=== PATIENT | female | born 1975 | race Caucasian/White ===

== ENCOUNTER 2021-06-25 11:42 | Emergency (ER) | payer OTHER, BC, SELFPAY ==
[2021-06-25 11:42] VITALS: BP 131/74; PULSE 89; RESP 18; TEMP 36.4; O2SAT 95; BMI 36.6
[2021-06-25 12:00] VITALS: BP 131/76; PULSE 90; RESP 18; TEMP 36.6
--- NOTE | 2021-06-25 12:06 | ED.MEDCLEAR ---
HPI - Medical Clearance General Chief complaint: Body Fluid Exposure Stated complaint: Needle stick Time Seen by Provider: 06/25/21 11:51 Source: patient Mode of arrival: ambulatory Limitations: no limitations History of Present Illness HPI Narrative: 46 y/o female presents to the ER for evaluation after a needle stick here at work just prior to arrival. Patient reports accidentally poking herself with a lancet used for point of care glucose testing after sticking the patient. She works here on [employer]. She states the was slight bleeding at the site, she squeezed her finger to make it bleed more and then cleaned it will alcohol and soap and water. She reports the patient was not on any anti-retroviral medications but she does not know for sure if he has HCV or HIV. MD complaint: medical clearance requested Onset (ago): minute(s) Reason for Medical Clearance: other trauma Place: work Alleged Intoxication: No Traumatic Symptoms: abrasion Associated Symptoms: denies other symptoms Treatments Prior to Arrival: none Related Information Allergies Allergy/AdvReac Type Severity Reaction Status Date / Time Unable to Assess Allergy Unverified 06/25/21 12:19 Review of Systems Review of Systems: Constitutional: No Fever, No Chills Cardiovascular: No Chest Pain, No SOB Gastrointestinal: No Nausea, No Vomiting Musculoskeletal: No joint pain, No Myalgias Skin: +Skin Lesions, No rash Neuro: No Weakness, No Numbness Psych: + Anxiety/Panic, No Depression Heme/Lymph: No Bruising, No Lymphadenopathy PMFSH Social History Social History Advance Directives: No Advance Directives Information Provided: No Physical Exam Vital Signs: Vital Signs: Last Vital Signs Temp 97.8 F 06/25/21 12:00 Pulse 90 06/25/21 12:00 Resp 18 06/25/21 12:00 BP 131/76 06/25/21 12:00 Pulse Ox 95 06/25/21 11:42 BMI result Body Mass Index 36.6 Appearance: Alert. Oriented X3. No acute distress. Anxious CVS: Normal heart rate and rhythm. Pulses normal. Respiratory: No respiratory distress. Skin: Skin warm and dry. Normal skin color. Normal skin turgor. No rashes. Extremities: left 5th digit with a punctate erythematous lesion that could be consistent with a superficial needle stick. no tenderness, no surrounding erythema. normal ROM of the finger. NV intact distally. Neuro: Oriented X 3. No motor deficit. No sensory deficit. 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 HIV and HCV status unknown. Unknown if IVDA. Doctor caring for the patient has been made aware with plan to test the patient for hepatitis and HIV. We discussed the risks and benefits of post-exposure prophylaxis. Given this is a very low risk exposure decision was made to hold off on prophylaxis at this time and follow up with the patients labs. If she changes her mind she was encouraged to return to the ER [facility] to start meds, preferably within 72 hours of event. Patient expressed understanding. Stable for d/c with [facility] follow up. MDM - Medical Clearance Lab Data Result diagrams: 06/25/21 12:43 06/25/21 12:43 Discharge Plan Discharge Clinical Impression: Exposure to blood or body fluid Patient Disposition: Home, Self-Care Instructions: Body Substance Exposure (ED) Additional Instructions: Your labs were drawn for hepatitis panel and HIV. If either are positive, we will call you. Your exposure today was very low risk Decision was made to hold off on propphylaxis for now - encourage the source to get tested for HIV and hepatitis. If you change your mind, come back to the ER to start prophylaxis. Follow up with [facility]. Referrals: [facility] [Provider Group] - 2 days Interventions: ED Discharge Assessment Last Done: 06/25/21 12:50 Discharge Date/Time: 06/25/21 12:52
[2021-06-25 12:47] LABS: MANUAL DIFF FLAG NO
[2021-06-25 13:04] LABS: Basophils Absolute Auto 0.1 X10*3/uL (0.0-0.2); Basophils Percent Auto 0.6 % (0-2); Eosinophils Absolute Auto 0.2 X10*3/uL (0.0-0.4); Eosinophils Percent Auto 2.6 % (0-4); Hematocrit 40.1 % (37.0-47.0); Imm Gran Abs Auto 0.03 X10*3/uL (0.00-0.03); Imm Gran Pct Auto 0.4 % (0.0-0.4); Lymphocytes Absolute Auto 2.1 X10*3/uL (1.2-4.9); Mean Corpuscular HGB Conc 34.9 g/dl (31.0-35.0); Mean Corpuscular Hemoglobin 31.1 pg (27.0-33.0); Mean Corpuscular Volume 89.1 fL (80.0-98.0); Monocytes Absolute Auto 0.4 X10*3/uL (0.1-1.2); Monocytes Percent Auto 5.3 % (2-11); Neutrophils Absolute Auto 5.3 x10*3/uL (2.0-8.3); Neutrophils Percent Auto 65.1 % (45-73); Platelet Count 240 X10*3/uL (160-400); Red Cell Distribution Width 12.3 % (11.0-16.0); White Blood Count 8.2 X10*3/uL (4.8-10.8)
[2021-06-25 13:07] LABS: Alanine Aminotransferase 16 U/L (0-31); Albumin Level 4.1 g/dL (3.5-5.0); Alkaline Phosphatase 44 U/L (39-117); Anion Gap 12 (12-20); Aspartate Amino Transferase 17 U/L (5-31); Bilirubin Direct 0.2 mg/dL (0.0-0.5); Bilirubin Total 0.7 mg/dL (0.0-1.0); Blood Urea Nitrogen 10 mg/dL (9-16); Calcium 9.4 mg/dL (8.4-10.2); Carbon Dioxide 28 mmol/L (22-29); Chloride 106 mmol/L (96-108); Estimated Glomerular Filt Rate 57; Glucose Random 100 mg/dL (60-115); Potassium 4.6 mmol/L (3.3-5.1); Sodium 141 mmol/L (135-145); Total Protein 6.6 g/dL (6.5-8.0)
[2021-06-27 04:09] LABS: HBS Num1 2.41 mIU/mL (0-7.99); HBc Num1 0.05 S/CO (0.00-0.79); Hepatitis B Core Antibody Nonreactive (Nonreactive); ~HepC Num1 0.06 S/CO (0.00-0.79); ~Hepatitis B Surface Antibody NONREACTIVE (Nonreactive); ~Hepatitis C Antibody Nonreactive (Nonreactive)
[2021-06-27 04:12] LABS: HBsAGNum1 0.22 S/CO (0.00-0.99); HIV AB/AG Nonreactive (Nonreactive); HIV Num 1 0.05 S/CO (0.00-0.99); Hepatitis B Surface Antigen Negative (Negative)
[2021-06-29 04:04] LABS: Hepatitis A Antibody IgM 0.21 Index (0-0.79); ~Hepatitis A Antibody IgM Nonreactive (Nonreactive)
== END 2021-06-25 12:52 | disposition home or self-care (01) ==
PROVIDERS: Physician Assistant; Emergency Provider Emergency Medicine Emergency Medical Services; PCP Family Medicine
DX: Z04.2 Encounter for examination and observation following work accident (principal); Z77.21 Contact with and (suspected) exposure to potentially hazardous body fluids
CPT/HCPCS: 36415; 80048; 80076; 85025; 86704; 86706; 86709; 86803; 87340; 87389; 99283; 99284

== ENCOUNTER → 2021-09-16 09:22 | Outpatient (BNVA) | payer OTHER, SELFPAY | PROVIDERS: PCP Family Medicine | DX: Z13.89 Encounter for screening for other disorder (principal) | CPT/HCPCS: 36415; 84450; 84460; 86803; 87389; 99211 ==

== ENCOUNTER → 2022-01-04 15:11 | Outpatient (BNVA) | payer OTHER, SELFPAY | PROVIDERS: PCP Family Medicine | DX: Z13.89 Encounter for screening for other disorder (principal) | CPT/HCPCS: 36415; 84450; 84460; 86803; 87389; 99211 ==

== ENCOUNTER 2022-07-20 09:00 | Outpatient (RCR) | payer OTHER, SELFPAY | END 2022-08-03 08:30 | disposition home or self-care (01) | LOC: HO.PT 09:00 | PROVIDERS: PCP Family Medicine; Visit Provider Family Medicine | DX: M54.12 Radiculopathy, cervical region (principal) | CPT/HCPCS: 97112; 97161 ==

== ENCOUNTER 2022-12-18 13:01 | Emergency (ER) | payer OTHER, SELFPAY ==
--- OUTSIDE RECORDS SUMMARY | 2022-12-18 15:40 | XMS_ITS | Continuity of Care Document ---
Author Name Unknown Organization [facility] Address [address] [place] [address]- Care Team Providers Care Ship'S Electronic Warfare Officer Name Role Phone Annabelle CANTU, Clementine Guillory Primary Care Physician ( [phone] [facility]counter [facility] Date[facility]): 05/10[facility]21 - 06/09/21 [facility] [address] [place] [address]- Allergies, Adverse Reactions, Alerts Substance Reaction Severity Status codeine gi vomitting hives Severe Active sertraline 1, 2 Active 1focal itchy rash on one vaughn with pitting edema by her report 3 wks in to treatment course, just prior was rash only on one wrist. 2rash, pitting edema Immunizations Given and Recorded Vaccine Date Status Refusal Reason SARS-CoV-2 (COVID-19) mRNA-1273 vaccine 04/19/21 R ecorded SARS-CoV-2 (COVID-19) mRNA-1273 vaccine 06/25/20 R ecorded SARS-CoV-2 (COVID-19) mRNA-1273 vaccine 05/28/20 R ecorded tetanus/diphtheria/pertussis, acel(Tdap) 1 10/25/15 Given influenza virus vaccine, inactivated 2 03/06/12 Gi landy influenza virus vaccine, inactivated 04/03/11 Jl rded influenza virus vaccine, inactivated 03/08/10 Give n Measles/Mumps/Rubella Virus Vaccine 11/17/04 Given Measles/Mumps/Rubella Virus Vaccine 09/26/89 Given Measles/Mumps/Rubella Virus Vaccine 77 Given tetanus-diphtheria toxoids (Td) 3 11/17/04 Given tetanus-diphtheria toxoids (Td) 4 5/12/88 Given Hepatitis B Vaccine (old term) 5 04/06/94 Given Hepatitis B Vaccine (old term) 6 10/05/93 Given Hepatitis B Vaccine (old term) 7 08/31/93 Given Poliovirus Vaccine, Inactivated 8 02/21/82 Given Poliovirus Vaccine, Inactivated 9 10/15/78 Given Poliovirus Vaccine, Inactivated 10 77 Given Poliovirus Vaccine, Inactivated 11 77 Given Poliovirus Vaccine, Inactivated 12 77 Given diphtheria/tetanus/pertussis, acel(DTaP) 02/21/82 Given diphtheria/tetanus/pertussis, acel(DTaP) 10/15/78 Given diphtheria/tetanus/pertussis, acel(DTaP) 77 Given diphtheria/tetanus/pertussis, acel(DTaP) 77 Given diphtheria/tetanus/pertussis, acel(DTaP) 77 Given 1Result Comment: [10/25/2015] waiver signed 2Admin Note: VIM dated 10/30/11 GIVEN TODAY 3Admin Note: [employer] vim 03/17/08 4Admin Note: [employer] vim 03/17/08 5Admin Note: pediatrix, vis given 6Admin Note: pediatrix, vis given 7Admin Note: pediatrix, vis given 8Admin Note: pediatrix, vis given 9Admin Note: pediatrix, vis given 10Admin Note: pediatrix, vis given 11Admin Note: pediatrix, vis given 12Admin Note: pediatrix, vis given Medications buPROPion 300 mg/24 hours (XL) oral tablet, extended release 1 tablet = 300 mg, By Mouth, Every 24 hours, # 90 tablet, 1 Refills, Maintenance, 04/14/21 16:47:00EST, [facility]/pharmacy #[id number], Partial fill upon patient request if the prescription is for a schedule IIopioid drug., 166, cm, 03/30/21 15:10:00 EST, Height Start Date: 04/14/21 Stop Date: 10/11/21 Status: Ordered doxepin 5% topical cream 1 application, Topically, 4 times a day, PRN for itching, # 30 Gm, 0 Refills, Maintenance, 03/07/2115:04:00 EST, Cream, Partial fill upon patient request if the prescription is for a schedule II opioid drug. Start Date: 03/07/21 Status: Ordered Vitamin D3 By Mouth, 0 Refills, Maintenance, 11/29/16 15:00:22 Start Date: 11/29/16 Status: Ordered Xanax 0.25 mg oral tablet 0.25 mg, 1, tablet, By Mouth, 3 times a day, PRN, mass pat ok, ok for less, # 12 tablet, Refills 0,Tot. Refills 0, Maintenance, air travel, 05/23/21 17:47:00 EST, Route to Pharmacy Electronically, [facility]/pharmacy #[id number], 166, cm, 05/23/21 8:36:00 EST, He... 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
--- OUTSIDE RECORDS SUMMARY | 2022-12-18 15:40 | XMS_ITS | Continuity of Care Document ---
Author Name Unknown Organization [facility] Address [address] [place] [address]- Care Team Providers Care Store Gift Wrap Associate Name Role Phone Annabelle CANTU, Clementine Guillory Primary Care Physician [facility] Date[facility]s): 07/[facility]/20 - 08/29/20 [facility] [address] [place] [address]- Allergies, Adverse Reactions, Alerts Substance Reaction Severity Status codeine gi vomitting hives Severe Active Immunizations Given and Recorded Vaccine Date Status Refusal Reason tetanus/diphtheria/pertussis, acel(Tdap) 1 10/25/15 Given influenza virus vaccine, inactivated 2 03/06/12 Gi landy influenza virus vaccine, inactivated 03/08/10 Give n Measles/Mumps/Rubella Virus Vaccine 11/17/04 Given Measles/Mumps/Rubella Virus Vaccine 09/26/89 Given Measles/Mumps/Rubella Virus Vaccine 77 Given tetanus-diphtheria toxoids (Td) 3 11/17/04 Given tetanus-diphtheria toxoids (Td) 4 09/09/87 Given Hepatitis B Vaccine (old term) 5 04/06/94 Given Hepatitis B Vaccine (old term) 6 10/05/93 Given Hepatitis B Vaccine (old term) 7 08/31/93 Given Poliovirus Vaccine, Inactivated 8 02/21/82 Given Poliovirus Vaccine, Inactivated 9 10/15/78 Given Poliovirus Vaccine, Inactivated 10 77 Given Poliovirus Vaccine, Inactivated 11 77 Given Poliovirus Vaccine, Inactivated 77 Given diphtheria/tetanus/pertussis, acel(DTaP) 02/21/82 Given diphtheria/tetanus/pertussis, [...] given 12Admin Note: pediatrix, vis given Medications Vitamin D3 By Mouth, 0 Refills, Maintenance, 11/29/16 15:00:22 Start Date: 11/29/16 Status: Ordered Problem List Condition Effective Dates Status Health Status Inform ant 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
--- OUTSIDE RECORDS SUMMARY | 2022-12-18 15:40 | XMS_ITS | Continuity of Care Document ---
Author Name Unknown Organization [facility] Address [address] [place] [address]- Care Team Providers Care Rotor Balancer Name Role Phone Annabelle CANTU, Clementine Guillory Primary Care Physician [facility] [place]s): 04/08/20 - 04/15/20 [facility] [address] [place] [address]- Encounter Diagnosis Sense of smell altered(Discharge Diagnosis) - 04/11/20 Falls(Discharge Diagnosis) - 04/11/20 Attending Physician: Annabelle CANTU, Clementine Guillory Allergies, Adverse Reactions, Alerts Substance Reaction Severity [...] Lactose intolerance(Confirmed) Active Vitamin D deficiency(Confirmed) Active Diagnosis Diagnosis Type Effective Dates Health Status Cl inical Service Informant Sense of smell altered Discharge Diagnosis 04/11/20 Falls Discharge Diagnosis 04/11/20 Vital Signs Most recent to oldest [Reference Range]: 1 Height 166.6 cm (04/08/20 1:08 PM) Social History Social History Type Response Smoking Status Never (less than 100 in lifetime) entered on: 11/19/19 Sex
--- OUTSIDE RECORDS SUMMARY | 2022-12-18 15:40 | XMS_ITS | Continuity of Care Document ---
Author Name Unknown Organization [facility] Address [address] [place] [address]- Care Team Providers Care Cad Technician Name Role Phone Annabelle CANTU, Clementine Guillory Primary Care Physician [facility] Date[facility]s): 08/19/21 - 09/18/21 [facility] [address] [place] [address]- Allergies, Adverse Reactions, Alerts Substance Reaction Severity [...] 90 tablet, 1 Refills, Maintenance, 04/14/21 16:47:00EST, [facility]/pharmacy #[id number], Partial fill upon patient request if [...] 05/23/21 17:47:00 EST, Route to Pharmacy Electronically, [facility]/pharmacy #[id number], 166, cm, 05/23/21 8:36:00 EST, He... [...]
--- OUTSIDE RECORDS SUMMARY | 2022-12-18 15:40 | XMS_ITS | Continuity of Care Document ---
Author Name Unknown Organization [facility] Address [address] [place] [address]- Care Team Providers Care Clinical Research Analyst Name Role Phone Annabelle CANTU, Clementine Guillory Primary Care Physician [place] [facility] [place] 04/21/21 - 04/28/21 [facility] [address] [place] [address]- Attending Physician: Not on Staff, Attending MD Referring Physician: Annabelle CANTU, Clementine Guillory Allergies, Adverse [...] Status Refusal Reason SARS-CoV-2 (COVID-19) mRNA-1273 vaccine 06/25/20 R ecorded [...] 90 tablet, 1 Refills, Maintenance, 04/14/21 16:47:00EST, [facility]/pharmacy #[id number], Partial fill upon patient request if the prescription is for a schedule IIopioid drug., 166, cm, 03/30/21 15:10:00 EST, Height Start Date: 04/14/21 Stop Date: 10/11/21 Status: Ordered cephalexin monohydrate 500 mg oral capsule 1 capsule = 500 mg, By Mouth, 4 times a day, for 7 days, # 28 capsule, 0 Refills, Acute 05/03/21 9:34:00 EST, 04/26/21 9:34:00 EST, Capsule, [facility]/pharmacy #[id number], Partial fill upon patient request if the prescription is for a schedule II opioid drug., 1... Start Date: 04/26/21 Stop Date: 05/03/21 Status: Ordered clotrimazole 1% topical cream 1 application, Topically, 2 times a day, PRN athlete's foot/ rash, for 30 days, # 45 Gm, 1 Refills,Acute 05/11/21 15:28:00 EST, 03/12/21 15:28:00 EST, Cream, [facility]/pharmacy #[id number], Partial fill upon patient request if the prescription is for a schedule... Start Date: 03/12/21 Stop Date: 05/11/21 Status: Ordered doxepin 5% topical cream 1 [...] Refills 0,Tot. Refills 0, Maintenance, air travel, 12/30/20 21:13:00 EDT, Route to Pharmacy Electronically, [facility]/pharmacy #[id number], 166, cm, 12/10/20 7:42:00 EDT, He... 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 HLD (hyperlipidemia)(Confirmed) Active h/o IBS (irritable bowel syndrome)(Confirmed) Active Lactose intolerance(Confirmed) Active Psoriasis(Confirmed) Active Mild recurrent major depression(Confirmed) Active Vitamin D deficiency(Confirmed) Active Vital Signs Most recent to oldest [Reference Range]: 1 Height 166 cm (04/21/21 9:04 AM) Oxygen Saturation [94-100 %] 97 % (04/21/21 9:04 AM) Pulse Rate [55-90 bpm] 87 bpm (04/21/21 9:04 AM) Blood Pressure [90-138/55-84 mm Hg] 116/ 88mm Hg (04/21/21 9:04 AM) Respiratory Rate [16-30 br/min] 16 br/mi n (04/21/21 9:04 AM) Temperature [96.8-100.4 DegF] 99.4 DegF (04/21/21 9:04 AM) Mode of Delivery (Oxygen) Room air (04/21/21 9:04 AM) Blood pressure sites Arm, right (04/21/21 9:04 AM) Temperature Route Temporal (04/21/21 9:04 AM) Social History Social History Type Response Smoking Status Never (less than 100 in lifetime) entered on: 11/19/19 Sex
--- OUTSIDE RECORDS SUMMARY | 2022-12-18 15:40 | XMS_ITS | Continuity of Care Document ---
Author Name Unknown Organization [facility] Address [address] [place] [address]- Care Team Providers Care Cloth Washer Back Tender Name Role Phone Annabelle CANTU, Clementine Guillory Primary Care Physician [facility] Date(s): 05/02/21 - 06/01/21 [facility] [address] [place] [address]- Attending Physician: Jennifer Quintero Admitting Physician: Jennifer Quintero Referring Physician: AdmtrJennifer Allergies, Adverse Reactions, Alerts Substance Reaction Severity [...] # 90 tablet, 1 Refills, Maintenance, 04/14/21 16:47:00[facility], [facility]/pharmacy #[id number], Partial fill upon patient request if the [...] opioid drug. Start Date: 03/07/21 Status: Ordered mupirocin 2% topical cream 1 application, Topically, 3 times a day, for 10 days, apply a thin film to rash, # 60 Gm, 0 Refills, Acute 06/09/21 13:45:00 EST, 05/30/21 13:45:00 EST, Cream, [facility]/pharmacy #[id number], Partial fill upon patient request if the prescription is for a schedule... Start Date: 05/30/21 Stop Date: 06/09/21 Status: Ordered Vitamin D3 By Mouth, 0 Refills, Maintenance, 11/29/16 15:00:22 Start Date: 11/29/16 Status: Ordered Xanax 0.25 mg oral tablet 0.25 mg, 1, tablet, By Mouth, 3 times a day, PRN, mass pat ok, ok for less, # 12 tablet, Refills 0,Tot. Refills 0, Maintenance, air travel, 05/23/21 17:47:00 EST, Route to Pharmacy Electronically, [facility]/pharmacy #[id number], 166, cm, 05/23/21 8:36:00 EST, He... Start [...]
--- OUTSIDE RECORDS SUMMARY | 2022-12-18 15:40 | XMS_ITS | Continuity of Care Document ---
Author Name Unknown Organization [facility] Address [address] [place] [address]- Care Team Providers Care Business Solutions Director Name Role Phone Annabelle CANTU, Clementine Guillory Primary Care Physician [facility] Date[facility]s): 10/24/21 - 11/23/21 [facility] [address] [place] [address]- Allergies, Adverse Reactions, Alerts Substance Reaction Severity [...] 90 tablet, 1 Refills, Maintenance, 04/14/21 16:47:00EST, [facility]/pharmacy #[id number], Partial fill upon patient request if the prescription is for a schedule IIopioid drug., 166, cm, 03/30/21 15:10:00 EST, Height Start Date: 04/14/21 Stop Date: 10/11/21 Status: Ordered buPROPion 300 mg/24 hours (XL) oral tablet, extended release See Instructions, TAKE 1 TABLET BY MOUTH EVERY 24 HOURS FOR 90 DAYS, # 60 tablet, 2 Refills, [id number], 166, cm, 05/30/21 11:02:00 EST, Height Start Date: 10/03/21 Status: Ordered doxepin 5% topical cream 1 [...] 05/23/21 17:47:00 EST, Route to Pharmacy Electronically, [facility]/pharmacy #[id number], 166, cm, 05/23/21 8:36:00 EST, He... [...]
--- OUTSIDE RECORDS SUMMARY | 2022-12-18 15:40 | XMS_ITS | Continuity of Care Document ---
Author Name Unknown Organization [facility] Address [address] [place] [address]- Care Team Providers Care Senior Research Scientist Name Role Phone Annabelle CANTU, Clementine Guillory Primary Care Physician [facility] Date(s): 08/12/20 - 09/11/20 [facility] [address] [place] [address]- Allergies, Adverse Reactions, Alerts Substance Reaction Severity [...]
--- OUTSIDE RECORDS SUMMARY | 2022-12-18 15:40 | XMS_ITS | Continuity of Care Document ---
Author Name Unknown Organization [facility] Address [address] [place] [address]- Care Team Providers Care Ginner Name Role Phone Annabelle CANTU, Clementine Guillory Primary Care Physician ( [phone] [place] [facility] [place](s): 11/07/19 - 11/14/19 [facility] [address] [place] [address]- [facility] Encounter Diagnosis Encounter for observation for suspected exposure to other biological agents ruled out(Discharge Diagnosis) - 11/07/19 Attending Physician: Gabe Hilario MD Allergies, Adverse Reactions, Alerts Substance Reaction Severity [...] given 12Admin Note: pediatrix, vis given Medications Aerochamber See Instructions, PRN, # 1 each, Maintenance, Cough, for use with albuterol MDI, 04/15/18 13:53:27 EST, Compound Start Date: 04/15/18 Status: Ordered baclofen/flurbiprofen/lidocaine topical 1 applicator, Topically, 3 times a day, 0 Refills, Maintenance, 08/27/17 14:44:35 EDT Start Date: 08/27/17 Status: Ordered diclofenac sodium 75 mg oral delayed release tablet 1 tablet = 75 mg, By Mouth, 2 times a day, # 60 tablet, 2 Refills, Maintenance, 09/30/18 14:31:25 EDT, EC Tablet Start Date: 09/30/18 Status: Ordered doxycycline hyclate 200 mg oral delayed release tablet 1 tablet = 200 mg, By Mouth, Daily, # 1 tablet, 0 Refills, Maintenance, 09/17/18 16:18:42 EDT Start Date: 09/17/18 Stop Date: 09/18/18 Status: Ordered metroNIDAZOLE 0.75% topical gel 1 application, Topically, Daily, with vaginal applicator, # 45 Gm, 0 Refills, Maintenance, 10/09/1916:37:53 EDT, Gel Start Date: 10/09/18 Stop Date: 10/14/18 Status: Ordered raNITIdine 75 mg oral tablet 1 tablet = 75 mg, By Mouth, 2 times a day, # 14 tablet, 0 Refills, Maintenance, 10/16/18 16:23:15 EDT, Tablet Start Date: 10/16/18 Stop Date: 10/23/18 Status: Ordered Vitamin D3 By Mouth, 0 Refills, Maintenance, 11/29/16 15:00:22 Start Date: 11/29/16 Status: Ordered Problem List Condition Effective Dates Status Health Status Inform ant HLD (hyperlipidemia)(Confirmed) Active IBS (irritable bowel syndrome)(Confirmed) Active Lactose intolerance(Confirmed) Active Vitamin D deficiency(Confirmed) Active Diagnosis Diagnosis Type Effective Dates Health Status Clinical Service Informant Encounter for observation for suspected exposure to other biological agents ruled out Discharge Diagnosis 11/07/19 Vital Signs Most recent to oldest [Reference Range]: 1 Height 166.6 cm (11/07/19 1:45 PM) Social History Social History Type Response Smoking Status Never smoker entered on: 12/23/13 Sex
--- OUTSIDE RECORDS SUMMARY | 2022-12-18 15:40 | XMS_ITS | Continuity of Care Document ---
Author Name Unknown Organization [facility] Address [address] [place] [address]- Care Team Providers Care Supervisor Screen Making Name Role Phone Annabelle CANTU, Clementine Guillory Primary Care Physician [facility] Date(s): 10/07/20 - 11/06/20 [facility] [address] [place], [place] [address] Allergies, Adverse Reactions, Alerts Substance Reaction Severity [...]
--- OUTSIDE RECORDS SUMMARY | 2022-12-18 15:40 | XMS_ITS | Continuity of Care Document ---
Author Name Unknown Organization [facility] Address [address] [place] [address]- Care Team Providers Care Contractor Field Hauling Name Role Phone Annabelle CANTU, Clementine Guillory Primary Care Physician ( [phone] [facility]counter [facility] Date(s): 12/30/20 - 01/29/21 [facility] [address] [place], [place] [address] Allergies, Adverse Reactions, Alerts Substance Reaction [...] Inactivated 9 10/15/78 Given Poliovirus Vaccine, Inactivated 77 Given Poliovirus Vaccine, Inactivated 77 Given Poliovirus Vaccine, Inactivated 77 Given [...] 12/30/20 21:13:00 EDT, Route to Pharmacy Electronically, [facility]/pharmacy #[id number], 166, cm, 12/10/20 7:42:00 EDT, He... Start [...]
--- OUTSIDE RECORDS SUMMARY | 2022-12-18 15:40 | XMS_ITS | Continuity of Care Document ---
Author Name Unknown Organization [facility] Address [address] [place] [address]- Care Team Providers Care University President Name Role Phone Annabelle CANTU, Clementine Guillory Primary Care Physician [facility] Date(s): 03/09/20 - 04/08/20 [facility] [address] [place], [place] [address] Allergies, Adverse Reactions, Alerts Substance Reaction Severity [...]
--- OUTSIDE RECORDS SUMMARY | 2022-12-18 15:40 | XMS_ITS | Continuity of Care Document ---
Author Name Unknown Organization [facility] Address [address] [place] [address]- Care Team Providers Care Customer Training Specialist Name Role Phone Annabelle CANTU, Clementine Guillory Primary Care Physician [facility]counter [facility] Date(s): 03/30/21 - 04/29/21 [facility] [address] [place] [address]- Allergies, Adverse Reactions, Alerts Substance Reaction Severity [...] 90 tablet, 1 Refills, Maintenance, 04/14/21 16:47:00EST, [id number], Partial fill upon patient request [...] 05/11/21 15:28:00 EST, 03/12/21 15:28:00 EST, Cream, [facility]/pharmacy #[id number], Partial fill upon patient request if [...] 12/30/20 21:13:00 EDT, Route to Pharmacy Electronically, [facility]/pharmacy #5, 166, cm, 12/10/20 7:42:00 EDT, He... Start [...]
--- OUTSIDE RECORDS SUMMARY | 2022-12-18 15:40 | XMS_ITS | Continuity of Care Document ---
Author Name Unknown Organization [facility] Address [address] [place] [address]- Care Team Providers Care Clinical Team Manager Name Role Phone Annabelle CANTU, Clementine Guillory Primary Care Physician ( [phone] [place] [facility] [place] 11/03/21 - 01/14/22 [facility] [address] [place] [address]- Attending Physician: Annabelle CANTU, Clementine Guillory Allergies, [...] 90 tablet, 1 Refills, Maintenance, 04/14/21 16:47:00EST, [facility]/pharmacy #[id number], Partial fill upon patient request if the prescription is for a schedule IIopioid drug., 166, cm, 03/30/21 15:10:00 EST, Height Start Date: 04/14/21 Stop Date: 10/11/21 Status: Ordered buPROPion 300 mg/24 hours (XL) oral tablet, extended release See Instructions, TAKE 1 TABLET BY MOUTH EVERY 24 HOURS FOR 90 DAYS, # 60 tablet, 2 Refills, [id number], 166, cm, 05/30/21 11:02:00 EST, Height Start [...] 05/23/21 17:47:00 EST, Route to Pharmacy Electronically, [facility]/pharmacy #[id number], 166, cm, 05/23/21 8:36:00 EST, [...] 100 in lifetime) entered on: 11/19/19 Sex Care Team Personnel Name: Annabelle CANTU, Clementine Guillory Address: [address] [place] [address]
--- OUTSIDE RECORDS SUMMARY | 2022-12-18 15:40 | XMS_ITS | Continuity of Care Document ---
Author Name Unknown Organization [facility] Address [address] [place] [address]- Care Team Providers Care Accounts Receivable Collector Name Role Phone Annabelle CANTU, Clementine Guillory Primary Care Physician [facility] Date(s): 12/15/20 - 01/14/21 [facility] [address] [place], [place] [address] Allergies, Adverse Reactions, Alerts Substance Reaction [...] 12/30/20 21:13:00 EDT, Route to Pharmacy Electronically, [facility]/pharmacy #[id number], 166, cm, 12/10/20 7:42:00 EDT, He... Start [...]
--- OUTSIDE RECORDS SUMMARY | 2022-12-18 15:40 | XMS_ITS | Continuity of Care Document ---
Author Name Unknown Organization [facility] Address [address] [place] [address]- Care Team Providers Care Sound Cutter Name Role Phone Annabelle CANTU, Clementine Guillory Primary Care Physician Encounter [facility] Date(s): 05/30/21 - 06/06/21 [facility] [address] [place] [address]- Encounter Diagnosis Rash(Discharge Diagnosis) - 05/30/21 Attending Physician: Annabelle CANTU, Clementine Guillory Allergies, [...] # 90 tablet, 1 Refills, Maintenance, 04/14/21 16:47:00[facility], [facility]/pharmacy #[id number], Partial fill upon patient request [...] 06/09/21 13:45:00 EST, 05/30/21 13:45:00 EST, Cream, [facility]/pharmacy #[id number], Partial fill upon patient request if [...] 05/23/21 17:47:00 EST, Route to Pharmacy Electronically, [facility]/pharmacy #[id number], 166, cm, 05/23/21 8:36:00 EST, He... [...] major depression(Confirmed) Active Vitamin D deficiency(Confirmed) Active Diagnosis Diagnosis Type Effective Dates Health Status Clini nina Service Informant Rash Discharge Diagnosis 05/30/21 Vital Signs Most recent to oldest [Reference Range]: 1 Height 166 cm (05/30/21 11:02 AM) Weight 104.4 kg (05/30/21 11:02 AM) Body Mass Index [18.5-24.99] 37.89 *>HHI* (05/30/21 11:02 AM) Social History Social History Type Response Smoking Status Never (less than 100 in lifetime) entered on: 11/19/19 Sex
--- OUTSIDE RECORDS SUMMARY | 2022-12-18 15:40 | XMS_ITS | Continuity of Care Document ---
Author Name Unknown Organization [facility] Address [address] [place] [address]- Care Team Providers Care Steward/Stewardess Room Name Role Phone Annabelle CANTU, Clementine Guillory Primary Care Physician [facility] Date(s): 02/28/21 - 03/30/21 [facility] [address] [place] [address]- Allergies, Adverse Reactions, Alerts Substance Reaction Severity [...] 12Admin Note: pediatrix, vis given Medications buPROPion 150 mg/24 hours (XL) oral tablet, extended release 1 tablet = 150 mg, By Mouth, Every 24 hours, new start 03/30/21, may increase in 7 days if tolerating to 2 pills (300 mg ) a day. do not crush or chew, # 30 tablet, 0 Refills, Maintenance, 03/30/21 16:49:00 EST, ER Tablet, [facility]/pharmacy #[id number], Partial... Start Date: 03/30/21 Stop Date: 04/29/21 Status: Ordered calcipotriene 0.005% topical cream 1 application, Topically, 2 times a day, PRN psoriasis, for 30 days, # 60 Gm, 0 Refills, Acute 04/02/21 16:27:00 EST, 03/03/21 16:27:00 EDT, Cream, [facility]/pharmacy #[id number], Partial fill upon patient request if the prescription is for a schedule II opioid d... Start Date: 03/03/21 Stop Date: 04/02/21 Status: Ordered clotrimazole 1% topical cream 1 application, Topically, 2 times a day, PRN athlete's foot/ rash, for 30 days, # 45 Gm, 1 Refills,Acute 05/11/21 15:28:00 EST, 03/12/21 15:28:00 EST, Cream, [facility]/pharmacy #[id number], Partial fill upon patient request [...] 12/30/20 21:13:00 EDT, Route to Pharmacy Electronically, [facility]/pharmacy #[id number], 166, cm, 12/10/20 7:42:00 EDT, [...]
--- OUTSIDE RECORDS SUMMARY | 2022-12-18 15:40 | XMS_ITS | Continuity of Care Document ---
Author Name Unknown Organization [facility] Address [address] [place] [address]- Care Team Providers Care Helper/Driver Name Role Phone nAnabelle CANTU, Clementine Guillory Primary Care Physician [facility]counter [facility] Date(s): 10/18/20 - 11/17/20 [facility] [address] [place], [place] [address] Allergies, Adverse Reactions, Alerts Substance [...]
--- OUTSIDE RECORDS SUMMARY | 2022-12-18 15:40 | XMS_ITS | Continuity of Care Document ---
Author Name Unknown Organization [facility] Address [address] [place] [address]- Care Team Providers Care Wine And Spirits Clerk Name Role Phone Annabelle CANTU, Clementine Guillory Primary Care Physician [facility]counter [facility] Date(s): 12/13/20 - 01/12/21 [facility] [address] [place], [place] [address] Allergies, Adverse Reactions, Alerts Substance Reaction [...] 12/30/20 21:13:00 EDT, Route to Pharmacy Electronically, [facility]/pharmacy #[id number], 166, cm, 12/10/20 7:42:00 EDT, He... Start [...]
--- OUTSIDE RECORDS SUMMARY | 2022-12-18 15:40 | XMS_ITS | Continuity of Care Document ---
Author Name Unknown Organization [facility] Address [address] [place] [address]- Care Team Providers Care Ranch Manager Name Role Phone Annabelle CANTU, Clementine Guillory Primary Care Physician Encounter [facility] [place] [place] Date(s): 05/30/21 - 06/29/21 [facility] [address] [place] [address]- Attending Physician: Jennifer Quintero Admitting Physician: Jennifer Quintero Referring Physician: Jennifer Quintero Allergies, Adverse Reactions, Alerts Substance Reaction Severity [...] # 90 tablet, 1 Refills, Maintenance, 04/14/21 16:47:00[facility], [facility]/pharmacy #[id number], Partial fill upon patient request if the [...] 05/23/21 17:47:00 EST, Route to Pharmacy Electronically, [facility]/pharmacy #[id number], 166, cm, 05/23/21 8:36:00 EST, [...]
--- OUTSIDE RECORDS SUMMARY | 2022-12-18 15:40 | XMS_ITS | Continuity of Care Document ---
Author Name Unknown Organization [facility] Address [address] [place] [address]- Care Team Providers Care Orthopedic Coder Name Role Phone Annabelle CANTU, Clementine Guillory Primary Care Physician [facility]counter [facility] Date(s): 04/18/21 - 05/18/21 [facility] [address] [place] [address]- Allergies, Adverse Reactions, Alerts Substance Reaction Severity [...] given 12Admin Note: pediatrix, vis given Medications betamethasone topical dipropionate 0.05% cream 1 application, Topically, Daily, for 14 days, # 50 Gm, 1 Refills, Acute 05/30/21 9:21:00 EST, 05/02/21 9:21:00 EST, Cream, [facility]/pharmacy #[id number], Partial fill upon patient request if the prescription isfor a schedule II opioid drug., 1 application Topic... Start Date: 05/02/21 Stop Date: 05/30/21 Status: Ordered buPROPion 300 mg/24 hours (XL) [...] 12/30/20 21:13:00 EDT, Route to Pharmacy Electronically, [facility]/pharmacy #[id number], 166, cm, 12/10/20 7:42:00 EDT, He... Start [...]
--- OUTSIDE RECORDS SUMMARY | 2022-12-18 15:40 | XMS_ITS | Continuity of Care Document ---
Author Name Unknown Organization [facility] Address [address] [place] [address]- Care Team Providers Care Coagulating Bath Mixer Name Role Phone Annabelle CANTU, Clementine Guillory Primary Care Physician ( [phone] [facility]counter [facility] Date(s): 03/04/21 - 04/03/21 [facility] [address] [place] [address]- Allergies, Adverse Reactions, Alerts Substance Reaction Severity [...] Refills, Maintenance, 03/30/21 16:49:00 EST, ER Tablet, [facility]/pharmacy #202, Partial... Start Date: 03/30/21 Stop Date: 04/29/21 Status: Ordered clotrimazole 1% topical cream 1 application, Topically, 2 times a day, PRN athlete's foot/ rash, for 30 days, # 45 Gm, 1 Refills,Acute 05/11/21 15:28:00 EST, 03/12/21 15:28:00 EST, Cream, [facility]/pharmacy #202, Partial fill upon patient request if the [...] 12/30/20 21:13:00 EDT, Route to Pharmacy Electronically, [facility]/pharmacy #[id number], 166, cm, 12/10/20 7:42:00 EDT, He... Start [...]
--- OUTSIDE RECORDS SUMMARY | 2022-12-18 15:40 | XMS_ITS | Continuity of Care Document ---
Author Name Unknown Organization [facility] Address [address] [place] [address]- Care Team Providers Care Loss Control Representative Name Role Phone Annabelle CANTU, Clementine Guillory Primary Care Physician ( [phone] [facility]counter [facility] Date(s): 10/14/20 - 11/13/20 [facility] [address] [place], [place] [address] Allergies, Adverse Reactions, Alerts [...]
--- OUTSIDE RECORDS SUMMARY | 2022-12-18 15:40 | XMS_ITS | Continuity of Care Document ---
Author Name Unknown Organization [facility] Address [address] [place] [address]- Care Team Providers Care Splicing Machine Operator Automatic Name Role Phone Annabelle CANTU, Clementine Guillory Primary Care Physician Encounter [facility] Date(s): 12/10/20 - 12/17/20 [facility] [address] [place] [address]- Encounter Diagnosis Health care maintenance(Discharge Diagnosis) - 12/10/20 HLD (hyperlipidemia)(Discharge Diagnosis) - 12/11/20 BMI 36.0-36.9,adult(Discharge Diagnosis) - 12/11/20 Attending Physician: Shelly PHELAN, Jack Landrum Referring Physician: Clementine Alanis MD Allergies, Adverse Reactions, Alerts Substance Reaction [...] Effective Dates Health Status Clinical Service Informant Health care maintenance Discharge Diagnosis 12/10/20 HLD (hyperlipidemia) Discharge Diagnosis 12/11/20 BMI 36.0-36.9,adult Discharge Diagnosis 12/11/20 Vital Signs Most recent to oldest [Reference Range]: 1 Height 166 cm (12/10/20 7:42 AM) Weight 100.7 kg (12/10/20 7:42 AM) Oxygen Saturation [94-100 %] 98 % (12/10/20 7:42 AM) Pulse Rate [55-90 bpm] 71 bpm (12/10/20 7:42 AM) Body Mass Index [18.5-24.99] 36.54 *>HHI* (12/10/20 7:42 AM) Blood Pressure [90-138/55-84 mm Hg] 112/ 79mm Hg (12/10/20 7:42 AM) Respiratory Rate [16-30 br/min] 24 br/mi n (12/10/20 7:42 AM) Blood pressure sites Arm, left (12/10/20 7:42 AM) Social History Social History Type Response Smoking Status Never (less than 100 in lifetime) entered on: 11/19/19 Sex
--- OUTSIDE RECORDS SUMMARY | 2022-12-18 15:40 | XMS_ITS | Continuity of Care Document ---
Author Name Unknown Organization [facility] Address [address] [place] [address]- Care Team Providers Care Jewel Bearing Broacher Name Role Phone Annabelle CANTU, Clementine Guillory Primary Care Physician [facility]counter [facility] Date(s): 03/09/20 - 04/08/20 [facility] [address] [place], [place] [address] Allergies, Adverse Reactions, Alerts Substance Reaction Severity [...]
--- OUTSIDE RECORDS SUMMARY | 2022-12-18 15:40 | XMS_ITS | Continuity of Care Document ---
Author Name Unknown Organization [facility] Address [address] [place] [address]- Care Team Providers Care Tool Profiling Machine Set Up Operator Name Role Phone Annabelle CANTU, Clementine Guillory Primary Care Physician [facility]counter [facility] Date(s): 08/04/20 - 09/03/20 [facility] [address] [place] [address]- Allergies, Adverse Reactions, Alerts Substance Reaction Severity [...] Vaccine, Inactivated 77 Given Poliovirus Vaccine, Inactivated 11 77 [...]
--- OUTSIDE RECORDS SUMMARY | 2022-12-18 15:41 | XMS_ITS | Continuity of Care Document ---
Author Name Unknown Organization [facility] Address [address] [place] [address]- Care Team Providers Care Yardage Control Operator Name Role Phone Annabelle CANTU, Clementine Guillory Primary Care Physician ( [phone] [facility]counter [facility] Date(s): 05/19/20 - 06/18/20 [facility] [address] [place] [address]- Allergies, Adverse Reactions, Alerts Substance Reaction Severity [...] Given diphtheria/tetanus/pertussis, acel(DTaP) 10/15/78 Given diphtheria/tetanus/pertussis, acel(DTaP) 3/23/78 Given diphtheria/tetanus/pertussis, acel(DTaP) 77 Given diphtheria/tetanus/pertussis, acel(DTaP) [...]
--- OUTSIDE RECORDS SUMMARY | 2022-12-18 15:41 | XMS_ITS | Continuity of Care Document ---
Author Name Unknown Organization [facility] Address [address] [place] [address]- Care Team Providers Care Bottom Worker Name Role Phone Annabelle CANTU, Clementine Giullory Primary Care Physician [facility]counter [facility] Date(s): 12/17/20 - 01/16/21 [facility] [address] [place], [place] [address] Allergies, Adverse Reactions, Alerts Substance Reaction [...] to Pharmacy Electronically, [facility]/pharmacy #[id number], 166, cm, 12/10/20 7:42:00 EDT, He... Start [...]
--- OUTSIDE RECORDS SUMMARY | 2022-12-18 15:41 | XMS_ITS | Continuity of Care Document ---
Author Name Unknown Organization [facility] Address [address] [place] [address]- Care Team Providers Care Dividend Deposit Voucher Clerk Name Role Phone Annabelle CANTU, Clementine Guillory Primary Care Physician [facility]counter [facility] Date(s): 04/11/21 - 05/11/21 [facility] [address] [place] [address]- Allergies, Adverse Reactions, Alerts Substance Reaction Severity [...] 05/30/21 9:21:00 EST, 05/02/21 9:21:00 EST, Cream, [facility]/pharmacy #202, Partial fill upon patient request [...] 12/30/20 21:13:00 EDT, Route to Pharmacy Electronically, [facility]/pharmacy #[id number], 166, cm, 12/10/20 7:42:00 EDT, He... [...]
--- OUTSIDE RECORDS SUMMARY | 2022-12-18 15:41 | XMS_ITS | Continuity of Care Document ---
Author Name Unknown Organization [facility] Address [address] [place] [address]- Care Team Providers Care Pie Bakery Laborer Name Role Phone Annabelle CANTU, Clementine Guillory Primary Care Physician En[place] [facility] [place] 06/15/20 - 07/21/[address] [address] Attending Physician: Clifton Melara MD Admitting Physician: Clifton Melara MD Referring Physician: Clifton Melara MD Allergies, Adverse Reactions, Alerts Substance Reaction [...]
--- OUTSIDE RECORDS SUMMARY | 2022-12-18 15:41 | XMS_ITS | Continuity of Care Document ---
Author Name Unknown Organization [facility] Address [address] [facility], [address] Floor, [address] [place] [address]- Care Team Providers Care Truck Sales Manager Name Role Phone Annabelle CANTU, Clementine Guillory Primary Care Physician Encounter [facility] [place] Date(s): 09/13/20 - 10/13/20 [facility] [address], [address] Floor, [address] [place] [id number] Attending Physician: Jennifer Quintero Admitting Physician: Admtr, Jennifer Referring Physician: Admtr, Ar8 Allergies, Adverse Reactions, Alerts Substance Reaction Severity [...]
--- OUTSIDE RECORDS SUMMARY | 2022-12-18 15:41 | XMS_ITS | Continuity of Care Document ---
Author Name Unknown Organization [facility] Address [address] [place] [address]- Care Team Providers Care Town Planner Name Role Phone Annabelle CANTU, Clementine Guillory Primary Care Physician [facility]counter [facility] Date(s): 11/06/19 - 12/06/19 [facility] [address] [place] [address]- [facility] Allergies, Adverse Reactions, Alerts Substance Reaction Severity [...]
--- OUTSIDE RECORDS SUMMARY | 2022-12-18 15:41 | XMS_ITS | Continuity of Care Document ---
Author Name Unknown Organization [facility] Address [address] [place] [address]- Care Team Providers Care Ground Products Director Name Role Phone Annabelle CANTU, Clementine Guillory Primary Care Physician ( [phone] Encounter [facility] Date(s): 08/04/20 - 09/03/20 [facility] [address] [place] [address]- Attending Physician: Jennifer Quintero Admitting Physician: AdmtrJennifer Referring Physician: Admtr ArDaylin Allergies, Adverse Reactions, Alerts Substance Reaction Severity [...]
--- OUTSIDE RECORDS SUMMARY | 2022-12-18 15:41 | XMS_ITS | Continuity of Care Document ---
Author Name Unknown Organization [facility] Address [address] [place] [address]- Care Team Providers Care Table Runner Name Role Phone Annabelle CANTU, Clementine Guillory Primary Care Physician [facility]counter [facility] Date(s): 05/04/20 - 06/03/20 [facility] [address] [place] [address]- Allergies, Adverse Reactions, Alerts Substance Reaction Severity [...]
--- OUTSIDE RECORDS SUMMARY | 2022-12-18 15:41 | XMS_ITS | Continuity of Care Document ---
Author Name Unknown Organization [facility] Address [address] [place] [address]- Care Team Providers Care Director Of Oncology Name Role Phone Annabelle CANTU, Clementine Guillory Primary Care Physician ( [phone] [facility] [place]s): 05/23/21 - 05/30/21 [facility] [address] [place] [address]- Encounter Diagnosis Rash(Discharge Diagnosis) - 05/29/21 Lesion of ear canal(Discharge Diagnosis) - 05/29/21 Blood pressure elevated without history of HTN(Discharge Diagnosis) - 05/29/21 Attending Physician: Annabelle CANTU, Clementine Guillory Allergies, [...] # 90 tablet, 1 Refills, Maintenance, 04/14/21 16:47:00[facility], [facility]/pharmacy #[id number], Partial fill upon patient request if the [...] 06/09/21 13:45:00 EST, 05/30/21 13:45:00 EST, Cream, [facility]/pharmacy #[id number], Partial fill upon patient request if [...] 05/23/21 17:47:00 EST, Route to Pharmacy Electronically, [facility]/pharmacy #[id number], 166, cm, 05/23/21 8:36:00 EST, He... [...] Dates Health Status Cl inical Service Informant Rash Discharge Diagnosis 05/29/21 Lesion of ear canal Discharge Diagnosis 05/29/21 Blood pressure elevated without history of HTN Discharge Diagnosis 05/29/21 Vital Signs Most recent to oldest [Reference Range]: 1 Height 166 cm (05/23/21 8:36 AM) Pulse Rate [55-90 bpm] 81 bpm (1/24/22 8:36 AM) Blood Pressure [90-138/55-84 mm Hg] 118/ 80mm Hg (05/23/21 8:36 AM) Respiratory Rate [16-30 br/min] 20 br/mi n (05/23/21 8:36 AM) Blood pressure sites Arm, left (05/23/21 8:36 AM) Social History Social History Type Response Smoking Status Never (less than 100 in lifetime) entered on: 11/19/19 Sex
--- OUTSIDE RECORDS SUMMARY | 2022-12-18 15:41 | XMS_ITS | Continuity of Care Document ---
Author Name Unknown Organization [facility] Address [address] [place] [address]- Care Team Providers Care Space Officer Name Role Phone Annabelle CANTU, Clementine Guillory Primary Care Physician ( [phone] [facility]counter [facility] Date(s): 08/17/20 - 09/16/20 [facility] [address] [place] [address]- Allergies, Adverse Reactions, Alerts Substance Reaction Severity [...]
--- OUTSIDE RECORDS SUMMARY | 2022-12-18 15:41 | XMS_ITS | Continuity of Care Document ---
Author Name Unknown Organization [facility] Address [address] [facility], [address] Floor, [address] [place] [address]- Care Team Providers Care Yard Inspector Name Role Phone Annabelle CANTU, Clementine Guillory Primary Care Physician ( [phone] Encounter [facility] Date(s): 07/30/20 - 08/29/20 [facility] [address], [address], [address] [place] [id number] Allergies, Adverse Reactions, Alerts Substance Reaction Severity [...]
--- OUTSIDE RECORDS SUMMARY | 2022-12-18 15:41 | XMS_ITS | Continuity of Care Document ---
Author Name Unknown Organization [facility] Address [address] [place] [address]- Care Team Providers Care Dental Hygiene Instructor Name Role Phone Annabelle CANTU, Clementine Guillory Primary Care Physician En[place] [facility] [place] Date(s): 03/03/21 - 03/10/21 [facility] [address] [place] [address]- Encounter Diagnosis Psoriasis(Discharge Diagnosis) - 03/03/21 Mild recurrent major depression(Discharge Diagnosis) - 03/03/21 Attending Physician: Annabelle CANTU, Clementine Guillory Allergies, [...] given 12Admin Note: pediatrix, vis given Medications calcipotriene 0.005% topical cream 1 application, Topically, 2 times a day, PRN psoriasis, for 30 days, # 60 Gm, 0 Refills, Acute 04/02/21 16:27:00 EST, 03/03/21 16:27:00 EDT, Cream, [facility]acy [id number], Partial fill upon patient request if the prescription is for a schedule II opioid d... Start Date: 03/03/21 Stop Date: 04/02/21 Status: Ordered doxepin 5% topical cream 1 application, Topically, 4 times a day, PRN for itching, # 30 Gm, 0 Refills, Maintenance, 03/07/2115:04:00 EST, Cream, Partial fill upon patient request if the prescription is for a schedule II opioid drug. Start Date: 03/07/21 Status: Ordered sertraline 25 mg oral tablet 1 tablet = 25 mg, By Mouth, Daily, new start 03/03/21, # 30 tablet, 1 Refills, Maintenance, 03/03/2116:27:00 EDT, Tablet, [id number], Partial fill upon patient request if the prescription is for a schedule II opioid drug., 166, cm, 03/01/21 13... Start Date: 03/03/21 Stop Date: 05/02/21 Status: Ordered Vitamin D3 By Mouth, 0 Refills, Maintenance, 11/29/16 15:00:22 Start Date: 11/29/16 Status: Ordered Xanax 0.25 mg oral tablet 0.25 mg, 1, tablet, By Mouth, 3 times a day, PRN, mass pat ok, ok for less, # 12 tablet, Refills 0,Tot. Refills 0, Maintenance, air travel, 12/30/20 21:13:00 EDT, Route to Pharmacy Electronically, [facility]/pharmacy #[id number], 166, cm, 12/10/20 7:42:00 EDT, [...] Effective Dates Health Status Clinical Service Informant Psoriasis Discharge Diagnosis 03/03/21 Mild recurrent major depression Discharge Diagnosis 03/03/21 Vital Signs Most recent to oldest [Reference Range]: 1 Height 166 cm (03/01/21 1:13 PM) Social History Social History Type Response Smoking Status Never (less than 100 in lifetime) entered on: 11/19/19 Sex
--- OUTSIDE RECORDS SUMMARY | 2022-12-18 15:41 | XMS_ITS | Continuity of Care Document ---
Author Name Unknown Organization [facility] Address [address] [place] [address]- Care Team Providers Care Regulatory Specialist Name Role Phone Annabelle CANTU, Clementine Guillory Primary Care Physician ( [phone] [facility] - 11/02/21 [facility] [address] [place] [address]- Allergies, Adverse Reactions, Alerts Substance Reaction Severity [...] 90 tablet, 1 Refills, Maintenance, 04/14/21 16:47:00EST, [facility]/pharmacy #[id number], Partial fill upon patient request if the prescription is for a schedule IIopioid drug., 166, cm, 03/30/21 15:10:00 EST, Height Start Date: 04/14/21 Stop Date: 10/11/21 Status: Ordered buPROPion 300 mg/24 hours (XL) oral tablet, extended release See Instructions, TAKE 1 TABLET BY MOUTH EVERY 24 HOURS FOR 90 DAYS, # 60 tablet, 2 Refills, [id number], 166, cm, 05/30/21 11:02:00 EST, Height Start [...] 05/23/21 17:47:00 EST, Route to Pharmacy Electronically, [facility]/pharmacy #[id number], 166, cm, 05/23/21 8:36:00 [...]
--- OUTSIDE RECORDS SUMMARY | 2022-12-18 15:41 | XMS_ITS | Continuity of Care Document ---
Author Name Unknown Organization [facility] Address [address] [place] [address]- Care Team Providers Care Logistics Account Manager Name Role Phone Annabelle CANTU, Clementine Guillory Primary Care Physician [facility] 02[facility]21 - 03/31/21 [facility] [address] [place] [address]- Attending Physician: Clementine Alanis MD Allergies, Adverse Reactions, [...] Refills, Maintenance, 03/30/21 16:49:00 EST, ER Tablet, [facility]/pharmacy #2024, Partial... Start Date: 03/30/21 Stop Date: 04/29/21 Status: Ordered calcipotriene 0.005% topical cream 1 application, Topically, 2 times a day, PRN psoriasis, for 30 days, # 60 Gm, 0 Refills, Acute 04/02/21 16:27:00 EST, 03/03/21 16:27:00 EDT, Cream, [facility]/pharmacy #2024, Partial fill upon patient request if the prescription is for a schedule II opioid d... Start Date: 03/03/21 Stop Date: 04/02/21 Status: Ordered clotrimazole 1% topical cream 1 application, Topically, 2 times a day, PRN athlete's foot/ rash, for 30 days, # 45 Gm, 1 Refills,Acute 05/11/21 15:28:00 EST, 03/12/21 15:28:00 EST, Cream, [facility]/pharmacy #2025, Partial fill upon patient request [...] 21:13:00 EDT, Route to Pharmacy Electronically, [facility]/pharmacy #2025, 166, cm, 12/10/20 7:42:00 EDT, [...]
--- OUTSIDE RECORDS SUMMARY | 2022-12-18 15:41 | XMS_ITS | Continuity of Care Document ---
Author Name Unknown Organization [facility] Address [address] [place] [address]- Care Team Providers Care Hog Ringer Name Role Phone Annablele CANTU, Clementine Guillory Primary Care Physician [facility]s): 03/29/21 - 04/28/21 [facility] [address] [place] [address]- Allergies, Adverse Reactions, Alerts Substance Reaction Severity [...] 05/11/21 15:28:00 EST, 03/12/21 15:28:00 EST, Cream, [facility]/pharmacy #[id number], Partial fill upon patient request [...] 12/30/20 21:13:00 EDT, Route to Pharmacy Electronically, [facility]/pharmacy #5, 166, cm, 12/10/20 7:42:00 EDT, He... [...]
--- OUTSIDE RECORDS SUMMARY | 2022-12-18 15:41 | XMS_ITS | Continuity of Care Document ---
Author Name Unknown Organization [facility] Address [address] [place] [address]- Care Team Providers Care Medical Director Of Hospice Name Role Phone Annabelle CANTU, Clementine Guillory Primary Care Physician [facility] 08/17/20 - 09/16/20 [facility] [address] [place] [address]- Allergies, Adverse Reactions, Alerts Substance Reaction Severity [...]
--- OUTSIDE RECORDS SUMMARY | 2022-12-18 15:41 | XMS_ITS | Continuity of Care Document ---
Author Name Unknown Organization [facility] Address [address] [place] [address]- Care Team Providers Care Cashier Or Checker Stock Clerk Name Role Phone Annabelle CANTU, Clementine Guillory Primary Care Physician ( [phone] [place] [facility] [place]s): 12/10/20 - 01/09/21 [facility] [address] [place] [address]- Attending Physician: Jennifer Quintero Admitting Physician: AdmtrJennifer Referring Physician: Admtr, Ar8 Allergies, Adverse Reactions, [...] Vaccine, Inactivated 12 77 Given diphtheria/tetanus/pertussis, acel(DTaP) 10/25/82 Given diphtheria/tetanus/pertussis, acel(DTaP) 10/15/78 Given diphtheria/tetanus/pertussis, acel(DTaP) [...] EDT, Route to Pharmacy Electronically, [facility]/pharmacy #[id number], 166, cm, 12/10/20 7:42:00 EDT, He... [...]
--- OUTSIDE RECORDS SUMMARY | 2022-12-18 15:41 | XMS_ITS | Continuity of Care Document ---
Author Name Unknown Organization [facility] Address [address] [place] [address]- Care Team Providers Care Goat Farmer Name Role Phone Annabelle CANTU, Clementine Guillory Primary Care Physician [facility] Date[facility]s): 08/16/20 - 09/15/20 [facility] [address] [place] [address]- Allergies, Adverse Reactions, Alerts Substance Reaction Severity [...]
--- OUTSIDE RECORDS SUMMARY | 2022-12-18 15:41 | XMS_ITS | Continuity of Care Document ---
Author Name Unknown Organization [facility] Address [address] [place] [address]- Care Team Providers Care Health Sciences Dean Name Role Phone Annabelle CANTU, Clementine Guillory Primary Care Physician ( [phone] [place] [facility] [place]s): 11/19/19 - 11/26/19 [facility] [address] [place] [address]- [facility] Encounter Diagnosis Sense of smell altered(Discharge Diagnosis) - 11/19/19 Attending Physician: Clementine Alanis MD Allergies, Adverse [...] Informant Sense of smell altered Discharge Diagnosis 11/19/19 Procedures Procedure Date Related Diagnosis Body Site Status [place] teeth removal Comp leted Vital Signs Most recent to oldest [Reference Range]: 1 Height 166.6 cm (11/19/19 1:08 PM) Social History Social History Type Response Smoking Status Never (less than 100 in lifetime) entered on: 11/19/19 Sex
--- OUTSIDE RECORDS SUMMARY | 2022-12-18 15:41 | XMS_ITS | Continuity of Care Document ---
Author Name Unknown Organization [facility] Address [address] [place] [address]- Care Team Providers Care Mold Shop Supervisor Name Role Phone Annabelle CANTU, Clementine Guillory Primary Care Physician [facility] Date[facility]s): 12/02/19 - 01/01/20 [facility] [address] [place] [address]- [facility] Allergies, Adverse Reactions, Alerts Substance Reaction [...]
--- OUTSIDE RECORDS SUMMARY | 2022-12-18 15:41 | XMS_ITS | Continuity of Care Document ---
Author Name Unknown Organization [facility] Address [address] [place] [address]- Care Team Providers Care Wet End Helper Name Role Phone Annabelle CANTU, Clementine Guillory Primary Care Physician [facility] Date(s): 08/12/20 - 09/11/20 [facility] [address] [place] [address]- Allergies, Adverse Reactions, Alerts Substance Reaction Severity [...]
--- OUTSIDE RECORDS SUMMARY | 2022-12-18 15:41 | XMS_ITS | Continuity of Care Document ---
Author Name Unknown Organization [facility] Address [address] [place] [address]- Care Team Providers Care Print Press Operator Name Role Phone Annabelle CANTU, Clementine Guillory Primary Care Physician [facility] Date(s): 05/27/21 - 06/26/21 [facility] [address] [place] [address]- Allergies, Adverse Reactions, Alerts Substance Reaction Severity [...] 90 tablet, 1 Refills, Maintenance, 04/14/21 16:47:00EST, [facility]/pharmacy #2025, Partial fill upon patient request [...] 17:47:00 EST, Route to Pharmacy Electronically, [facility]/pharmacy #[id number], 166, cm, 05/23/21 8:36:00 EST, [...]
--- OUTSIDE RECORDS SUMMARY | 2022-12-18 15:41 | XMS_ITS | Continuity of Care Document ---
Author Name Unknown Organization [facility] Address [address] [place] [address]- Care Team Providers Care Veneer Redrier Name Role Phone Annabelle CANTU, Clementine Guillory Primary Care Physician [place] [facility] 04/[place] - 05/03/21 [facility] [address] [place] [address]- Attending Physician: Perez Chung DO Referring Physician: Annabelle CANTU, Clementine Guillory Allergies, [...] 05/30/21 9:21:00 EST, 05/02/21 9:21:00 EST, Cream, [facility]/pharmacy #2025, Partial fill upon patient request if the prescription isfor a schedule II opioid drug., 1 application Topic... Start Date: 05/02/21 Stop Date: 05/30/21 Status: Ordered buPROPion 300 mg/24 hours (XL) oral tablet, extended release 1 tablet = 300 mg, By Mouth, Every 24 hours, # 90 tablet, 1 Refills, Maintenance, 04/14/21 16:47:00EST, [facility]/pharmacy #2025, Partial fill upon patient request if the prescription is for a schedule IIopioid drug., 166, cm, 03/30/21 15:10:00 EST, Height Start Date: 04/14/21 Stop Date: 10/11/21 Status: Ordered clotrimazole 1% topical cream 1 application, Topically, 2 times a day, PRN athlete's foot/ rash, for 30 days, # 45 Gm, 1 Refills,Acute 05/11/21 15:28:00 EST, 03/12/21 15:28:00 EST, Cream, [facility]/pharmacy #202, Partial fill upon patient request if [...] 12/30/20 21:13:00 EDT, Route to Pharmacy Electronically, [facility]/pharmacy #2024, 166, cm, 12/10/20 7:42:00 EDT, He... [...] oldest [Reference Range]: 1 Height 166 cm (04/26/21 9:25 AM) Oxygen Saturation [94-100 %] 98 % (04/26/21 9:25 AM) Pulse Rate [55-90 bpm] 84 bpm (04/26/21 9:25 AM) Blood Pressure [90-138/55-84 mm Hg] 120/ 77mm Hg (04/26/21 9:25 AM) Respiratory Rate [16-30 br/min] 18 br/mi n (04/26/21 9:25 AM) Temperature [96.8-100.4 DegF] 97.3 DegF (04/26/21 9:25 AM) Mode of Delivery (Oxygen) Room air (04/26/21 9:25 AM) Blood pressure sites Arm, left (04/26/21 9:25 AM) Temperature Route Temporal (04/26/21 9:25 AM) Social History Social History Type Response Smoking Status Never (less than 100 in lifetime) entered on: 11/19/19 Sex
--- OUTSIDE RECORDS SUMMARY | 2022-12-18 15:41 | XMS_ITS | Continuity of Care Document ---
Author Name Unknown Organization [facility] Address [address] [place] [address]- Care Team Providers Care Drop Forger Name Role Phone Annabelle CANTU, Clementine Guillory Primary Care Physician [facility] Date[facility]s): 11/03/21 - 12/03/21 [facility] [address] [place] [address]- Allergies, Adverse Reactions, Alerts Substance Reaction Severity [...] 90 tablet, 1 Refills, Maintenance, 04/14/21 16:47:00EST, [facility]/pharmacy #[id number], Partial fill upon patient request if the prescription is for a schedule IIopioid drug., 166, cm, 03/30/21 15:10:00 EST, Height Start Date: 04/14/21 Stop Date: 10/11/21 Status: Ordered buPROPion 300 mg/24 hours (XL) oral tablet, extended release See Instructions, TAKE 1 TABLET BY MOUTH EVERY 24 HOURS FOR 90 DAYS, # 60 tablet, 2 Refills, [id number], 166, cm, 05/30/21 11:02:00 EST, Height Start [...] to Pharmacy Electronically, [facility]/pharmacy #[id number], 166, cm, 05/23/21 8:36:00 EST, He... [...]
--- OUTSIDE RECORDS SUMMARY | 2022-12-18 15:41 | XMS_ITS | Continuity of Care Document ---
Author Name Unknown Organization [facility] Address [address] [place] [address]- Care Team Providers Care Furnace Hand Name Role Phone Annabelle CANTU, Clementine Guillory Primary Care Physician ( [phone] [place] [facility] [place]): [place] 05/09/21 [facility] [address] [place] [address]- Encounter Diagnosis Rash(Discharge Diagnosis) - 05/02/21 Attending Physician: Not on Staff, Attending MD [...] 05/30/21 9:21:00 EST, 05/02/21 9:21:00 EST, Cream, [facility]/pharmacy #2025, Partial fill upon patient request if the prescription isfor a schedule II opioid drug., 1 application Topic... Start Date: 05/02/21 Stop Date: 05/30/21 Status: Ordered buPROPion 300 mg/24 hours (XL) oral tablet, extended release 1 tablet = 300 mg, By Mouth, Every 24 hours, # 90 tablet, 1 Refills, Maintenance, 04/14/21 16:47:00EST, [facility]/pharmacy #[facility], Partial fill upon patient request if the prescription is for a schedule IIopioid drug., 166, cm, 03/30/21 15:10:00 EST, Height Start Date: 04/14/21 Stop Date: 10/11/21 Status: Ordered clotrimazole 1% topical cream 1 application, Topically, 2 times a day, PRN athlete's foot/ rash, for 30 days, # 45 Gm, 1 Refills,Acute 05/11/21 15:28:00 EST, 03/12/21 15:28:00 EST, Cream, [facility]/pharmacy #2024, Partial fill upon patient request [...] 12/30/20 21:13:00 EDT, Route to Pharmacy Electronically, [facility]/pharmacy #2024, 166, cm, 12/10/20 7:42:00 EDT, [...] Clini nina Service Informant Rash Discharge Diagnosis 05/02/21 Vital Signs Most recent to oldest [Reference Range]: 1 Height 166 cm (05/02/21 9:05 AM) Oxygen Saturation [94-100 %] 99 % (05/02/21 9:05 AM) Pulse Rate [55-90 bpm] 63 bpm (05/02/21 9:05 AM) Blood Pressure [90-138/55-84 mm Hg] 121/ 81mm Hg (05/02/21 9:05 AM) Respiratory Rate [16-30 br/min] 18 br/mi n (05/02/21 9:05 AM) Temperature [96.8-100.4 DegF] 98.6 DegF (05/02/21 9:05 AM) Mode of Delivery (Oxygen) Room air (05/02/21 9:05 AM) Blood pressure sites Arm, right (05/02/21 9:05 AM) Temperature Route Temporal (05/02/21 9:05 AM) Social History Social History Type Response Smoking Status Never (less than 100 in lifetime) entered on: 11/19/19 Sex
--- OUTSIDE RECORDS SUMMARY | 2022-12-18 15:41 | XMS_ITS | Continuity of Care Document ---
Author Name Unknown Organization [facility] Address [address] [place] [address]- Care Team Providers Care Medical Attendant Name Role Phone Annabelle CANTU, Clementine Guillory Primary Care Physician [facility] Date(s): 04/08/20 - 05/08/20 [facility] [address] [place] [address]- Attending Physician: Jennifer Quintero Admitting Physician: AdmtrJennifer [...]
--- OUTSIDE RECORDS SUMMARY | 2022-12-18 15:41 | XMS_ITS | Continuity of Care Document ---
Author Name Unknown Organization [facility] Address [address] [place] [address]- Care Team Providers Care Drive Shaft And Steering Post Repairer Name Role Phone Annabelle CANTU, Clementine Guillory Primary Care Physician ( [phone] [facility] Date(s): 10/04/21 - 11/03/21 [facility] [address] [place] [address]- Allergies, Adverse Reactions, Alerts Substance Reaction Severity [...] 90 tablet, 1 Refills, Maintenance, 04/14/21 16:47:00EST, [facility]/pharmacy #2025, Partial fill upon patient request if the prescription is for a schedule IIopioid drug., 166, cm, 03/30/21 15:10:00 EST, Height Start Date: 04/14/21 Stop Date: 10/11/21 Status: Ordered buPROPion 300 mg/24 hours (XL) oral tablet, extended release See Instructions, TAKE 1 TABLET BY MOUTH EVERY 24 HOURS FOR 90 DAYS, # 60 tablet, 2 Refills, [id number], 166, cm, 05/30/21 11:02:00 EST, Height Start [...] 05/23/21 17:47:00 EST, Route to Pharmacy Electronically, [facility]/pharmacy #2025, 166, cm, 05/23/21 8:36:00 EST, [...]
--- OUTSIDE RECORDS SUMMARY | 2022-12-18 15:41 | XMS_ITS | Continuity of Care Document ---
Author Name Unknown Organization [facility] Address [address] [place] [address]- Care Team Providers Care Electronic Engineering Technician Name Role Phone Annabelle CANTU, Clementine Guillory Primary Care Physician [facility] Date(s): 02/28/21 - 03/30/21 [facility] [address] [place] [address]- Allergies, Adverse Reactions, Alerts Substance Reaction Severity [...] Refills, Maintenance, 03/30/21 16:49:00 EST, ER Tablet, [facility]/pharmacy #2024, Partial... Start Date: 03/30/21 Stop Date: 04/29/21 Status: Ordered calcipotriene 0.005% topical cream 1 application, Topically, 2 times a day, PRN psoriasis, for 30 days, # 60 Gm, 0 Refills, Acute 04/02/21 16:27:00 EST, 03/03/21 16:27:00 EDT, Cream, [facility]/pharmacy #2024, Partial fill upon patient request if the prescription is for a schedule II opioid d... Start Date: 03/03/21 Stop Date: 04/02/21 Status: Ordered clotrimazole 1% topical cream 1 application, Topically, 2 times a day, PRN athlete's foot/ rash, for 30 days, # 45 Gm, 1 Refills,Acute 05/11/21 15:28:00 EST, 03/12/21 15:28:00 EST, Cream, [facility]/pharmacy #2025, Partial fill upon patient request [...] to Pharmacy Electronically, [facility]/pharmacy #2024, 166, cm, 12/10/20 7:42:00 EDT, He... [...]
--- OUTSIDE RECORDS SUMMARY | 2022-12-18 15:41 | XMS_ITS | Continuity of Care Document ---
Author Name Unknown Organization [facility] Address [address] [place] [address]- Care Team Providers Care Property Man Name Role Phone Annabelle CANTU, Clementine Guillory Primary Care Physician ( [phone] [place] [facility] [place] Date(s): 03/30/21 - 04/06/21 [facility] [address] [place] [address]- Encounter Diagnosis Mild recurrent major depression(Discharge Diagnosis) - 03/30/21 Attending Physician: Annabelle CANTU, Clementine Guillory Allergies, [...] Refills, Maintenance, 03/30/21 16:49:00 EST, ER Tablet, [facility], Partial... Start Date: 03/30/21 Stop Date: 04/29/21 Status: Ordered clotrimazole 1% topical cream 1 application, Topically, 2 times a day, PRN athlete's foot/ rash, for 30 days, # 45 Gm, 1 Refills,Acute 05/11/21 15:28:00 EST, 03/12/21 15:28:00 EST, Cream, [facility]/pharmacy #2024, Partial fill upon [...] Effective Dates Health Status Clinical Service Informant Mild recurrent major depression Discharge Diagnosis 03/30/21 Vital Signs Most recent to oldest [Reference Range]: 1 Height 166 cm (03/30/21 3:10 PM) Social History Social History Type Response Smoking Status Never (less than 100 in lifetime) entered on: 11/19/19 Sex
--- OUTSIDE RECORDS SUMMARY | 2022-12-18 15:41 | XMS_ITS | Continuity of Care Document ---
Author Name Unknown Organization [facility] Address [address] [place] [address]- Care Team Providers Care Metallurgist Helper Name Role Phone Annabelle CANTU, Clementine Guillory Primary Care Physician [place] [facility] Date[place]s): 12/23/19 - 04/21/20 [facility] [address] [place] [address]- Attending Physician: Clementine Alanis MD Allergies, Adverse [...]
--- OUTSIDE RECORDS SUMMARY | 2022-12-18 15:41 | XMS_ITS | Continuity of Care Document ---
Author Name Unknown Organization [facility] Address [address] [place] [address]- Care Team Providers Care Paper Novelty Maker Name Role Phone Annabelle CANTU, Clementine Guillory Primary Care Physician [facility] Date[facility]s): 10/26/21 - 12/03/21 [facility] [address] [place] [address]- Attending Physician: Annabelle CANTU, Clementine Guillory Allergies, [...] 1 Refills, Maintenance, 04/14/21 16:47:00EST, [facility]/pharmacy #[id number], Partial fill upon patient request if the prescription is for a schedule IIopioid drug., 166, cm, 03/30/21 15:10:00 EST, Height Start Date: 04/14/21 Stop Date: 10/11/21 Status: Ordered buPROPion 300 mg/24 hours (XL) oral tablet, extended release See Instructions, TAKE 1 TABLET BY MOUTH EVERY 24 HOURS FOR 90 DAYS, # 60 tablet, 2 Refills, [id number], 166, cm, 05/30/21 11:02:00 EST, Height Start [...] EST, Route to Pharmacy Electronically, [facility]/pharmacy #2025, 166, cm, 05/23/21 8:36:00 EST, He... [...]
--- OUTSIDE RECORDS SUMMARY | 2022-12-18 15:42 | XMS_ITS | Continuity of Care Document ---
Author Name Unknown Organization [facility] Address [address] [place] [address]- Care Team Providers Care Carbon Rod Inserter Name Role Phone Annabelle CANTU, Clementine Guillory Primary Care Physician [facility] Date(s): 04/13/21 - 05/13/21 [facility] [address] [place] [address]- Allergies, Adverse Reactions, Alerts Substance Reaction Severity [...] 9:21:00 EST, 05/02/21 9:21:00 EST, Cream, [facility]/pharmacy #2025, Partial fill upon patient request [...] 21:13:00 EDT, Route to Pharmacy Electronically, [facility]/pharmacy #2025, 166, cm, 12/10/20 7:42:00 EDT, [...]
--- OUTSIDE RECORDS SUMMARY | 2022-12-18 15:42 | XMS_ITS | Continuity of Care Document ---
Author Name Unknown Organization [facility] Address [address] [place] [address]- Care Team Providers Care Cotton Picker Name Role Phone Annabelle CANTU, Clementine Guillory Primary Care Physician [facility] Date(s): 06/17/21 - 07/17/21 [facility] [address] [place] [address]- Allergies, Adverse Reactions, Alerts Substance Reaction Severity [...] 90 tablet, 1 Refills, Maintenance, 04/14/21 16:47:00EST, [facility]/pharmacy #2025, Partial fill upon patient request [...] 05/23/21 17:47:00 EST, Route to Pharmacy Electronically, [facility]/pharmacy #2025, 166, cm, 05/23/21 8:36:00 EST, [...]
--- OUTSIDE RECORDS SUMMARY | 2022-12-18 15:42 | XMS_ITS | Continuity of Care Document ---
Author Name Unknown Organization [facility] Address [address] [address]- Care Team Providers Care Policy Cancellation Clerk Name Role Phone Annabelle CANTU, Clementine Guillory Primary Care Physician [facility] Date(s): 05/04/20 - 06/03/20 [facility] [address] [address]- Attending Physician: Jennifer Quintero Admitting Physician: AdmtrJennifer [...]
--- OUTSIDE RECORDS SUMMARY | 2022-12-18 15:42 | XMS_ITS | Continuity of Care Document ---
Author Name Unknown Organization [facility] Address [address] [place] [address]- Care Team Providers Care Electrical Instrument Maker Name Role Phone Annabelle CANTU, Clementine Guillory Primary Care Physician [facility] Date(s): 08/25/21 - 09/24/21 [facility] [address] [place] [address]- Allergies, Adverse Reactions, Alerts Substance Reaction Severity [...] 90 tablet, 1 Refills, Maintenance, 04/14/21 16:47:00EST, [facility]/pharmacy #2025, Partial fill upon patient request [...] 05/23/21 17:47:00 EST, Route to Pharmacy Electronically, [facility]/pharmacy #2025, 166, cm, 05/23/21 8:36:00 EST, [...]
--- OUTSIDE RECORDS SUMMARY | 2022-12-18 15:42 | XMS_ITS | Continuity of Care Document ---
Author Name Unknown Organization [facility] Address [address] [place] [address]- Care Team Providers Care Animal Behaviourist Name Role Phone Annabelle CANTU, Clementine Guillory Primary Care Physician [facility] Date(s): 06/07/20 - 07/07/20 [facility] [address] [place] [place] [address] Allergies, Adverse Reactions, Alerts Substance Reaction Severity [...]
--- OUTSIDE RECORDS SUMMARY | 2022-12-18 15:42 | XMS_ITS | Continuity of Care Document ---
Author Name Unknown Organization [facility] Address [address] [place] [address]- Care Team Providers Care Applications Trainer Name Role Phone Annabelle CANTU, Clementine Guillory Primary Care Physician ( [phone] Encounter [facility] [facility] Date(s): 08/04/20 - 08/11/20 [facility] [address] [place] [address]- Encounter Diagnosis Tick bite(Discharge Diagnosis) - 08/04/20 Attending Physician: Damion Camarena Referring Physician: Clementine Alanis MD Allergies, Adverse [...] Dates Health Status Clini nina Service Informant Tick bite Discharge Diagnosis 08/04/20 Vital Signs Most recent to oldest [Reference Range]: 1 Height 166.6 cm (08/04/20 5:43 PM) Oxygen Saturation [94-100 %] 96 % (08/04/20 5:43 PM) Pulse Rate [55-90 bpm] 56 bpm (08/04/20 5:43 PM) Blood Pressure [90-138/55-84 mm Hg] 111/ 75mm Hg (08/04/20 5:43 PM) Respiratory Rate [16-30 br/min] 16 br/mi n (08/04/20 5:43 PM) Temperature [96.8-100.4 DegF] 98.2 DegF (08/04/20 5:43 PM) Mode of Delivery (Oxygen) Room air (08/04/20 5:43 PM) Blood pressure sites Arm, left (08/04/20 5:43 PM) Temperature Route Temporal (08/04/20 5:43 PM) Social History Social History Type Response Smoking Status Never (less than 100 in lifetime) entered on: 11/19/19 Sex
--- OUTSIDE RECORDS SUMMARY | 2022-12-18 15:42 | XMS_ITS | Continuity of Care Document ---
Author Name Unknown Organization [facility] Address [address] [place] [address]- Care Team Providers Care Sas Analyst Name Role Phone Annabelle CANTU, Clementine Guillory Primary Care Physician Encounter [facility] Date(s): 08/10/20 - 09/09/20 [facility] [address] [place] [address]- Allergies, Adverse Reactions, Alerts Substance Reaction Severity [...]
--- OUTSIDE RECORDS SUMMARY | 2022-12-18 15:42 | XMS_ITS | Continuity of Care Document ---
Author Name Unknown Organization [facility] Address [address], [address], [address] [place] [address]- Care Team Providers Care Egg Sorter Name Role Phone Annabelle CANTU, Clementine Guillory Primary Care Physician Encounter [facility] [place] Date(s): 06/15/20 - 10/13/20 [facility] [address], [address] Floor, [address] [place] [id number] Attending Physician: Clifton Melara MD Admitting Physician: Clifton Melara MD Allergies, Adverse Reactions, [...]
--- OUTSIDE RECORDS SUMMARY | 2022-12-18 15:42 | XMS_ITS | Continuity of Care Document ---
Author Name Unknown Organization [facility] Address [address] [address]- Care Team Providers Care Rig Supervisor Name Role Phone Annabelle CANTU, Clementine Guillory Primary Care Physician ( [phone] Encounter [facility] Date(s): 05/04/20 - 05/11/20 [facility] [address] [address]- Attending Physician: Clementine Alanis MD Admitting Physician: Clementine Alanis MD Referring Physician: Annabelle CANTU, Clementine Guillory [...]
--- OUTSIDE RECORDS SUMMARY | 2022-12-18 15:42 | XMS_ITS | Continuity of Care Document ---
Author Name Unknown Organization [facility] Address [address] [place] [address]- Care Team Providers Care Engineering Mathematician Name Role Phone Annabelle CANTU, Clementine Guillory Primary Care Physician Encounter [facility] Date(s): 04/20/21 - 05/20/21 [facility] [address] [place] [address]- Allergies, Adverse Reactions, Alerts Substance Reaction Severity [...] 05/30/21 9:21:00 EST, 05/02/21 9:21:00 EST, Cream, [facility]/pharmacy #[id number], Partial fill upon patient [...] 12/30/20 21:13:00 EDT, Route to Pharmacy Electronically, [facility]/pharmacy #[id number], 166, cm, 12/10/20 7:42:00 EDT, [...]
--- OUTSIDE RECORDS SUMMARY | 2022-12-18 15:42 | XMS_ITS | Continuity of Care Document ---
Author Name Unknown Organization [facility] Address [address] [place] [address]- Care Team Providers Care Elevator Examiner Name Role Phone Annabelle CANTU, Clementine Guillory Primary Care Physician Encounter [facility] Date(s): 12/15/21 - 01/14/22 [facility] [address] [place] [address]- Attending Physician: Jennifer Quintero Admitting Physician: Jennifer [...] # 90 tablet, 1 Refills, Maintenance, 04/14/21 16:47:00[facility], [facility]/pharmacy #[id number], Partial fill upon patient request if the prescription is for a schedule IIopioid drug., 166, cm, 03/30/21 15:10:00 EST, Height Start Date: 04/14/21 Stop Date: 10/11/21 Status: Ordered buPROPion 300 mg/24 hours (XL) oral tablet, extended release See Instructions, TAKE 1 TABLET BY MOUTH EVERY 24 HOURS FOR 90 DAYS, # 60 tablet, 2 Refills, [id number], 166, cm, 05/30/21 11:02:00 EST, Height Start [...] 05/23/21 17:47:00 EST, Route to Pharmacy Electronically, [facility]/pharmacy #5, 166, cm, 05/23/21 8:36:00 EST, He... Start [...] Personnel Name: Annabelle CANTU, Clementine Guillory Address: [address]
--- OUTSIDE RECORDS SUMMARY | 2022-12-18 15:42 | XMS_ITS | Continuity of Care Document ---
Author Name Unknown Organization [facility] Address [address] [place] [address]- Care Team Providers Care Healthcare Business Analyst Name Role Phone Annabelle CANTU, Clementine Guillory Primary Care Physician ( [phone] Encounter [facility] Date(s): 04/20/21 - 06/19/21 [facility] [address] [place] [address]- Attending Physician: Annabelle CANTU, Clementine Guillory Allergies, [...] 90 tablet, 1 Refills, Maintenance, 04/14/21 16:47:00EST, [facility]/pharmacy #[id number], Partial fill upon patient request [...] 05/23/21 17:47:00 EST, Route to Pharmacy Electronically, [facility]/pharmacy #[id number], 166, cm, 05/23/21 8:36:00 EST, [...]
--- OUTSIDE RECORDS SUMMARY | 2022-12-18 15:42 | XMS_ITS | Continuity of Care Document ---
Author Name Unknown Organization [facility] Address [address] [place] [address]- Care Team Providers Care Correctional Nurse Name Role Phone Annabelle CANTU, Clementine Guillory Primary Care Physician ( [phone] Encounter [facility] Date(s): 12/13/20 - 01/12/21 [facility] [address] [place], [place] [address] Allergies, Adverse Reactions, Alerts Substance Reaction Severity [...] Route to Pharmacy Electronically, [facility]/pharmacy #[id number], 166, cm, 12/10/20 7:42:00 EDT, He... Start [...]
== END 2022-12-18 16:44 | disposition left against medical advice (07) ==
PROVIDERS: Emergency Provider Emergency Medicine
DX: R42 Dizziness and giddiness (principal)

== ENCOUNTER 2023-05-16 08:05 | Outpatient (REF) | payer OTHER, SELFPAY | END 2023-05-16 08:06 | disposition home or self-care (01) | LOC: HO.SH 08:05 | PROVIDERS: Visit Provider Nurse Practitioner | DX: Z01.118 Encounter for examination of ears and hearing with other abnormal findings (principal); H90.3 Sensorineural hearing loss, bilateral | CPT/HCPCS: 92557 ==

== ENCOUNTER 2023-09-13 18:21 | Emergency (ER) | payer OTHER, SELFPAY ==
--- NOTE | ~2023-09-13 | XR_ITS ---
EXAMINATION: Right hand and wrist x-ray CLINICAL INFORMATION: Trauma. Pain. Rule out fracture. COMPARISON: None. TECHNIQUE: 3 views of the right hand and 3 views of the right wrist FINDINGS: Bone alignment is normal. No fracture or dislocation. Normal joint spaces. Normal soft tissues. XR/XR hand RT 2V IMPRESSION: Unremarkable examination.
--- NOTE | ~2023-09-13 | XR_ITS ---
EXAMINATION: Right hand and wrist x-ray CLINICAL INFORMATION: Trauma. Pain. Rule out fracture. COMPARISON: None. TECHNIQUE: 3 views of the right hand and 3 views of the right wrist FINDINGS: Bone alignment is normal. No fracture or dislocation. Normal joint spaces. Normal soft tissues. XR/XR wrist RT min 3V IMPRESSION: Unremarkable examination.
[2023-09-13 18:29] VITALS: BP 121/77; PULSE 67; RESP 16; TEMP 36.6; O2SAT 95; BMI 29.1
--- NOTE | 2023-09-13 18:33 | ED_ITS ---
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 Patient is right-hand dominant, no history of previous hand or wrist injury in the past. Related Data Allergies Allergy/AdvReac Type Severity Reaction Status Date / Time codeine Allergy Vomiting Verified 09/13/23 18:31 tramadol Allergy Swelling Verified 09/13/23 18:31 Review of Systems Review of Systems: All other systems are reviewed and are negative Constitutional: Reports as per HPI and Reports no additional constitutional complaints Eyes: Reports as per HPI and Reports no additional eye complaints Reports system reviewed and no additional complaints, except as documented Cardiovascular: Reports as per HPI and Reports no additional cardiovascular complaints Respiratory: Reports as per HPI and Reports no additional respiratory complaints Gastrointestinal: Reports as per HPI and Reports no additional gastrointestinal complaints Genitourinary: Reports no additional female genitourinary complaints Musculoskeletal: Reports no additional musculoskeletal complaints Skin/Breast: Reports system reviewed and no additional complaints, except as docu Psychiatric: Reports no additional psychiatric complaints Endocrine: Reports no additional endocrine complaints Hematologic/Lymphatic: Reports no additional hematologic/lymphatic complaints Allergic/Immunologic: Reports no additional allergic/immunologic complaints Reports system reviewed and no additional complaints, except as documented and Reports Abnormal speech present [facility] Social History Social History Advance Directives: No Advance Directives Information Provided: No Physical Exam Vital Signs: Vital Signs: Last Vital Signs Temp 97.9 F 09/13/23 18:29 Pulse 67 09/13/23 18:29 Resp 16 09/13/23 18:29 BP 121/77 09/13/23 18:29 Pulse Ox 95 09/13/23 18:29 O2 Del Method Room Air 09/13/23 18:29 BMI result Body Mass Index 29.1 Vital signs have been reviewed and appear to be correct. Blood pressure elevated. Heart rate normal. Respiratory rate normal. Temperature normal. Oxygen saturation normal. Appearance: Alert. Oriented X3. No acute distress. Head: Normal external exam. Normocephalic. Atraumatic. No Gupta signs noted. No raccoon eyes noted Eyes: PERRLA. EOMI. Conjunctiva and sclera normal. Eyelids normal. ENT: TM's Normal. Pharynx normal. Uvula midline. Moist mucous membranes. No trismus noted. No drooling noted. No muffled voice noted. Neck: Normal inspection. Neck supple. FROM. No adenopathy. Thyroid Normal. No meningeal signs. No neck mass noted. CVS: Normal heart rate and rhythm. Heart sound normal. No murmurs noted. Pulses normal throughout. Respiratory: No respiratory distress. Painless inspiration. Breath sounds normal. No wheezes/rales/rhonchi noted. Chest nontender. No accessory muscle usage noted or decreased air movement noted. Abdomen: Soft and nontender. Bowel sounds normal in all 4 quadrants. No distention noted. No organomegaly noted. No visible injury noted. Back: No CVA tenderness. Full range of motion noted. Skin: Skin warm and dry. Normal skin color. Normal skin turgor. No rashes/lesions/lacerations noted. Extremities: Right upper extremity: Mild tenderness over the ulnar aspect of the right wrist, no deformity, no step-off, light touch sensation is intact in the right hand and right wrist. Good cap refill less than 2 seconds, patent right radial artery. Neurovascular intact. Neuro: Oriented X 3. Cranial nerve exam: II-XII are grossly intact No motor deficit. No sensory deficit. Reflexes normal. Course Course Course Narrative: RME performed by Susan Wilhelm PA-C. Patient is a 48 year old assigned female at presenting to the emergency department with right wrist and hand pain. Patient states she was involved in a physical restraint while working and injured her right hand/wrist. Detailed physical exam and review of systems are deferred to the occupational therapy professor. Imaging ordered. Patient placed back in the waiting room pending room availability and results. Reevaluation(s) Reevaluation #1: 48-year-old female with right hand/right wrist pain after work-related injury, x-ray show no acute fracture dislocation. Follow-up with orthopedic, NSAIDs, ice, immobilization. Time: 19:32 Medical Decision Making Differential Diagnosis Differential Diagnoses: The differential diagnosis associated with the presentation includes (Right hand fracture, right hand contusion, right wrist fracture, right wrist contusion.) Admission/Observation Consideration of admission/observation: Escalation of care including admission/observation considered Discharge Plan Discharge Clinical Impression: Contusion of right wrist, Contusion of hand, right Patient Disposition: Home, Self-Care Instructions: Contusion in Adults (ED) Additional Instructions: 1. Use hand/wrist immobilizer. 2. Apply ice to the right hand/wrist. 3. Take Tylenol 500 mg tablet [id number] every 6 hours if needed for pain. 4. Follow-up with Dr. Clemente for ortho follow-up. Referrals: Nusrat Garcia NP [Primary Care Provider] - Dominic Clemente MD [Physician] - Stand Alone Forms: Work/School Release Print Language: Azeri
[2023-09-13] MEDS: Ibuprofen 400 MG TABLET PO (19:33)
[2023-09-13 20:25] VITALS: BP 118/75; PULSE 78; RESP 18; TEMP 36.6; O2SAT 98
[2023-09-13 20:39] VITALS: BP 118/75; PULSE 78; RESP 18; TEMP 36.6; O2SAT 98
== END 2023-09-13 20:40 | disposition home or self-care (01) ==
PROVIDERS: Emergency Provider Emergency Medicine; PCP Nurse Practitioner
DX: S60.211A Contusion of right wrist, initial encounter (principal); S60.221A Contusion of right hand, initial encounter; X58.XXXA Exposure to other specified factors, initial encounter; Y93.9 Activity, unspecified; Y92.239 Unspecified place in hospital as the place of occurrence of the external cause; Y99.0 Civilian activity done for income or pay
CPT/HCPCS: 73110; 73120; 99283; 99284

== ENCOUNTER 2023-09-20 13:51 | Outpatient (AMB) | payer OTHER, SELFPAY ==
--- NOTE | 2023-09-20 14:03 | A.OFFVIS_ITS ---
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 States patient was banging their head into the wall and her initial reaction to help the patient was to stick her hand in between the patients head and wall. She presented to ED department where xrays were taken and referred to orthopedics. Currently her pain is mild and located at the dorsal aspect of wrist. Pain comes with any pressure on wrist. Denies numbness or tingling. Allergies codeine Allergy (Verified 09/20/23 14:04) Vomiting tramadol Allergy (Verified 09/20/23 14:04) Swelling HPI HPI [employer]BE[employer] FINISHER HELPER- RT Wrist pain/ swelling DOI 09/13/23: Details: 48-year-old right hand dominant female who presents to the office today for evaluation of right wrist pain after she attempted to restrain a patient at work who was banging their head into the wall and she put her hand between the patient?s head and wall, 09/13/23. She was seen at ED where x-rays were performed and she was referred to our office. She currently states she has swelling as well as mild pain at the dorsal aspect of her wrist that comes with any pressure on wrist. She denies any numbness or tingling. She takes ibuprofen and icing for her pain. 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, right hand dominant Review of Systems Const All systems reviewed & are unremarkable except as noted in HPI and below Physical Exam Vital Signs: BMI result Body Mass Index 29.1 Const General: cooperative, healthy appearing, comfortable, no acute distress, well developed and alert Orientation/consciousness: patient oriented x3 HEENT Head: Yes normal to inspection, Yes normocephalic and Yes atraumatic Eyes General: appearance normal, both eyes and all related structures Resp Effort & Inspection: normal respiratory effort and able to speak in complete sentences Cardio Rate: regular rate Peripheral pulses: Peripheral pulses 2+ throughout GI Palpation (GI): Soft to palpation Skin Lesions: no lesions Rashes: no rashes Neuro General: patient oriented x3 Extrem Other: Right wrist: Normal to inspection. She does have some faint bruising on the wrist along ulnar aspect. No specific tenderness with wrist extension which is along the distal ulnar joint. No pain with wrist flexion. No tenderness over the scaphoid, no tenderness over the scaffold lunate region. No pain with supination or pronation. NVI. Results Reviewed Results Reviewed: xrays of the right wrist obtained in the ED on 09/13/23 are negative for acute fracture or dislocations Assessment & Plan Assessment & Plan (1) Contusion of hand, right: Code(s): S60.221A - Contusion of right hand, initial encounter Category: Medical Qualifiers: Encounter type: initial encounter Qualified Code(s): S60.221A - Contusion of right hand, initial encounter (2) Contusion of right wrist: Code(s): S60.211A - Contusion of right wrist, initial encounter Category: Medical Qualifiers: Encounter type: initial encounter Qualified Code(s): S60.211A - Contusion of right wrist, initial encounter Plan She does have a wrist splint which was given to her in ED which she will wear at night and with any type of lifting activities if needed, otherwise she will increase activity as tolerated work without restrictions. She will see me back as needed. Patient Instructions: Scribed for Felipa Foreman PA-C, by Sameer Waldron pediatrician/medical doctor, on 09/20/2023 at 1:45 PM EST.? I, Felipa Foreman PA-C, have personally reviewed and agree with the information entered by the scribe. Coding Level of Care Code New Pt Level 3 (20127) Diagnoses Contusion of right hand, initial encounter S60.221A Encounter type: initial encounter Contusion of right wrist, initial encounter S60.211A Encounter type: initial encounter
[2023-09-20 14:07] VITALS: BMI 29.1
== END 2023-09-20 14:34 | disposition home or self-care (01) ==
LOC: HO.HOS 13:51
PROVIDERS: PCP Nurse Practitioner; Visit Provider Physician Assistant
DX: S60.221A Contusion of right hand, initial encounter (principal); S60.211A Contusion of right wrist, initial encounter; Z04.2 Encounter for examination and observation following work accident
CPT/HCPCS: 99203

== ENCOUNTER → 2023-09-20 13:51 | Outpatient (BNVA) | payer OTHER, SELFPAY | PROVIDERS: PCP Nurse Practitioner; Visit Provider Physician Assistant | DX: S60.221A Contusion of right hand, initial encounter (principal); S60.211A Contusion of right wrist, initial encounter | CPT/HCPCS: 99202 ==

== ENCOUNTER → 2024-02-21 13:30 | Outpatient (BNV) | payer OTHER, SELFPAY | PROVIDERS: PCP Nurse Practitioner; Visit Provider Internal Medicine | DX: Z12.31 Encounter for screening mammogram for malignant neoplasm of breast (principal) | CPT/HCPCS: 77063; 77067 ==

== ENCOUNTER 2024-02-21 13:33 | Outpatient (REF) | payer OTHER, SELFPAY ==
--- NOTE | ~2024-02-21 | MM_ITS ---
EXAMINATION: MM SCREENING DIGITAL BREAST TOMOSYNTHESIS, BILATERAL CLINICAL INFORMATION: Screening. Asymptomatic. COMPARISON: Mammography: Comparison is made with available priors TECHNIQUE: Digital breast mammography with tomosynthesis is performed in both the craniocaudal and mediolateral oblique views along with computer-aided detection (CAD). FINDINGS: There are scattered areas of fibroglandular density (ACR BI-RADS breast composition Category b). Bilateral reduction mammoplasty. There are no significant masses, abnormal calcifications, or other abnormalities. MM/MM tomosynthesis screening BI IMPRESSION: No mammographic evidence of malignancy. ASSESSMENT: BI-RADS BI-RADS 2 - Benign Findings RECOMMENDATION: Routine annual mammography screening. 1 year F/U This examination should not preclude the clinical evaluation of a suspicious palpable abnormality. This patient's information was entered into a reminder system with a target due date for their next mammogram. Electronically signed by: Lissett Yeager DO 02/22/2024 10:41 AM JERAMIE
== END 2024-02-21 13:34 | disposition home or self-care (01) ==
LOC: HO.MAMMO 13:33
PROVIDERS: PCP Nurse Practitioner; Visit Provider Nurse Practitioner
DX: Z12.31 Encounter for screening mammogram for malignant neoplasm of breast (principal)
CPT/HCPCS: 77063; 77067

== ENCOUNTER 2024-10-25 10:15 | Outpatient (REF) | payer OTHER, SELFPAY ==
--- NOTE | ~2024-10-25 | MR_ITS ---
EXAMINATION: MRI LEFT KNEE WITHOUT CONTRAST HISTORY: PAIN, ACUTE PAIN WORSENING WITH SWELLING COMPARISON: There are no prior studies available for comparison. TECHNIQUE: Coronal T1 and fat-suppressed proton density, sagittal proton density and fat-suppressed proton density, and axial fat suppressed T2 weighted MR images of the left knee were obtained. FINDINGS: Bone marrow: Bone marrow signal intensity is normal. Joint effusion: There is a trace joint effusion. Agarwal's cyst: There is no Agarwal's cyst. Articular cartilage: There is mild cartilage thinning and irregularity involving the medial compartment. There is a small cartilage defect involving the cartilage of the anterior aspect of the lateral femoral condyle (series 8, image 12). Muscles/soft tissues: The visualized muscles demonstrate normal signal intensity. Anterior cruciate ligament: Intact Posterior cruciate ligament: Intact Medial collateral ligament: Intact Lateral collateral ligament: Intact Medial meniscus: There is a horizontally oriented linear focus of increased signal intensity in the posterior body and posterior horn of the medial meniscus. This contacts the superior joint surface, consistent with a tear. The anterior horn intact. Lateral meniscus: Intact Flexor mechanism: The popliteus, gastrocnemius, and hamstring tendons are intact. Quadriceps tendon: Intact Patellar tendon: Intact Patellar retinacula: Intact MR/MR knee LT wo con IMPRESSION: 1. Mild osteoarthritis of the medial compartment. Small cartilage defect involving the anterior aspect of the lateral femoral condyle. 2. Horizontal tear of the posterior body and posterior horn of the medial meniscus. Electronically signed by: Elroy Browne MD 10/27/2024 08:21 AM EDT
--- OUTSIDE RECORDS SUMMARY | 2024-10-25 10:18 | XMS_ITS | Clinical Summary ---
Author Organization [facility] Address [address] [place] [address] Phone Care Team Providers Care Director Radio News Name Role Phone Physician, No Pcp Primary Care Provider Unavaila ble Social History Tobacco Use Types Packs/Day Years Used Date Smoking Tobacco: Never Assessed Comments Unknown Sex and Gender Information Value Date Recorded Sex Assigned at Not on file Legal Sex Female 8:19 AM EST Gender Identity Not on file Sexual Orientation Not on file Plan of Treatment Health Maintenance Due Date Last Done Comments Cervical Cancer Screening: Pap Smear 1998 Breast Cancer Screening 12/03/2023 12/02/2021 COVID-19 Vaccine ( season) 2023 04/19/2021, 06/25/2020, 05/28/2020 Cholesterol Screening (Lipid Panel) 03/26/2024 Colorectal Cancer Screening: Colonoscopy 03/26/2024 Depression Screening 03/26/2024 HIV Screening 03/26/2024 Hepatitis C Screening 03/26/2024 Social Influencers of Health Screening 03/26/2024 Influenza Vaccine (Season Ended) 2024 03/06/2012, 04/03/2011, 03/08/2010 DTaP,Tdap,and Td Vaccines (10 - Td or Tdap) 07/18/2032 07/18/2022, 10/25/2015, 11/17/2004, Additional history exists IPV Vaccines Completed 02/21/1982, 09/28, 1977, Additional history exists MMR Vaccines Completed 11/17/2004, 08/30, 1977 Hepatitis B Vaccines Completed 09/16/2021, 04/06/1994, 10/05/1993, Additional history exists HIB Vaccines Aged Out No longer eligi ble based on patient's age to complete this topic HPV Vaccines Aged Out No longer eligi ble based on patient's age to complete this topic Hepatitis A Vaccines Aged Out No long er eligible based on patient's age to complete this topic Meningococcal ACWY Vaccine Aged Out N o longer eligible based on patient's age to complete this topic Meningococcal B Vaccine Aged Out No l onger eligible based on patient's age to complete this topic Pneumococcal Vaccine: Pediatrics (0 to 5 Years) and At-Risk Patients (6 to 64 Years) Aged Out No longer eligible based on patient's age to complete this topic RSV Immunization Patients Under 20 months Aged Out No longer eligible based on patient's age to complete this topic Varicella Vaccines Aged Out No longer eligible based on patient's age to complete this topic Care Teams Director Radio News Relationship Specialty Start Date End Date Physician, No Pcp PCP - General 04/02/24
== END 2024-10-25 10:16 | disposition home or self-care (01) ==
LOC: HO.MRI 10:15
PROVIDERS: Visit Provider Physician Assistant
DX: M25.562 Pain in left knee (principal)
CPT/HCPCS: 73721

== ENCOUNTER → 2024-10-25 10:23 | Outpatient (BNV) | payer OTHER, SELFPAY | PROVIDERS: Visit Provider Radiology Diagnostic Radiology | DX: S83.242A Other tear of medial meniscus, current injury, left knee, initial encounter (principal) | CPT/HCPCS: 73721 ==

== ENCOUNTER 2025-01-29 08:28 | Emergency (ER) | payer OTHER, SELFPAY ==
--- NOTE | 2025-01-29 | ECG_ITS ---
Test Reason : dizzy Blood Pressure : */* mmHG Vent. Rate : 73 BPM Atrial Rate : 73 BPM P-R Int : 182 ms QRS Dur : 88 ms QT Int : 398 ms P-R-T Axes : 28 27 38 degrees QTcB Int : 438 ms Normal sinus rhythm Normal ECG No previous ECGs available Referred By: Generic ED Physician Electronically Signed By: SRINIVASAN JACKSON
--- NOTE | ~2025-01-29 | CT_ITS ---
EXAMINATION: CT ANGIOGRAM HEAD AND NECK CLINICAL INFORMATION: unsteadiness / gait instability COMPARISON: None available. TECHNIQUE: Noncontrast axial imaging of the head was performed. This was followed by test bolus sequences and head and neck intravenous bolus administration 70mL of Omnipaque 350. Helical imaging was performed in the axial plane from the aortic arch to the skull vertex. The data was processed at the optometric technologist's workstation for generation of MIP sequences. Angled MIPs and volume rendered reformatted images were also generated at an offline 3D workstation. Stenoses are assessed in accordance with NASCET criteria unless otherwise indicated. This CT examination was performed using dose optimization techniques as appropriate, variously including the following: *Automated exposure control *Adjustment of mA and/or kV according to patient size (this includes techniques or standardized protocols for targeted exams where dose is matched to indication/reason for exam; i.e. extremities or head) *Use of iterative reconstruction technique FINDINGS: NONCONTRAST HEAD CT: There is no evidence of intracranial hemorrhage or extra-axial fluid collection. There is no mass effect, or edema. No CT evidence of acute territorial infarct. Ventricles, sulci, and cisterns are normal in size and configuration for patient age. No hydrocephalus. No midline shift. No significant white matter abnormalities. Globes and orbital contents image normally. No extracranial soft tissue abnormalities. The paranasal sinuses, mastoid air cells, and tympanic cavities are normally aerated. No suspicious bony abnormalities. NECK CTA: -AORTIC ARCH: Normal in caliber. Mild atheromatous calcification. Three-vessel branching pattern. -GREAT VESSEL ORIGINS: Widely patent. No stenosis. -RIGHT COMMON CAROTID ARTERY: Normal in course and caliber to the level of the bifurcation. -CERVICAL RIGHT INTERNAL CAROTID ARTERY: Normal opacification without focal stenosis or occlusion. -LEFT COMMON CAROTID ARTERY: Normal in course and caliber to the level of the bifurcation. -CERVICAL LEFT INTERNAL CAROTID ARTERY: Mild calcific atherosclerotic disease of the carotid bulb and proximal internal carotid artery resulting in approximate 30% short segment stenosis. -CERVICAL RIGHT VERTEBRAL ARTERY: Small. Normal in course and caliber into the skull base. The origin is moderately obscured by streak artifact related to reflux of contrast in the right subclavian vein and superior vena cava. -CERVICAL LEFT VERTEBRAL ARTERY: Left dominant. Normal in course and caliber into the skull base. OTHER, SOFT TISSUES: -No lymphadenopathy or mass. No abnormal fluid collection or soft tissue swelling. -Normal thyroid. -Imaged superior mediastinal structures normal. -Imaged lung apices clear. CTA OF THE BRAIN: -INTRACRANIAL INTERNAL CAROTID ARTERIES: No focal stenosis or occlusion. Minimal atherosclerotic ossification is present in the carotid siphon on the left. -RIGHT ANTERIOR CEREBRAL ARTERY: Normal A1 segment.. Normal arborization of the distal segments. -LEFT ANTERIOR CEREBRAL ARTERY: Normal A1 segment.. Normal arborization of the distal segments. -ANTERIOR COMMUNICATING ARTERY: Normal. -RIGHT MIDDLE CEREBRAL ARTERY: Normal M1 segment of the MCA without focal stenosis or occlusion. Normal bifurcation. Normal arborization of the distal segments. -LEFT MIDDLE CEREBRAL ARTERY: Normal M1 segment of the MCA without focal stenosis or occlusion. Normal bifurcation. Normal arborization of the distal segments. -RIGHT VERTEBRAL ARTERY V4: Normal in course and caliber. -LEFT VERTEBRAL ARTERY V4: Normal in course and caliber. -BASILAR ARTERY: Normal without focal stenosis or occlusion. Normal appearance of the proximal superior cerebellar arteries. Normal basilar tip. -RIGHT POSTERIOR CEREBRAL ARTERY: Normal P1 segment. Normal opacification of the distal SAP PORTAL ARCHITECT segments. -LEFT POSTERIOR CEREBRAL ARTERY: Normal P1 segment. Normal opacification of the distal SAP PORTAL ARCHITECT segments. -POSTERIOR COMMUNICATING ARTERIES: The right is small but present. Left is patent. Normal opacification of the superior sagittal, straight, transverse, and sigmoid sinuses. No venous thrombosis. No space-occupying hemorrhage or definite evolving infarct. CT/CT angio head neck IMPRESSION: NONCONTRAST HEAD CT: 1. No intracranial hemorrhage or mass effect. No CT evidence of acute territorial infarct. CTA NECK: No hemodynamically significant stenosis. CTA HEAD: No hemodynamically significant stenosis. Susan Wilhelm, PAC notified and message read at 11:28 am ET Electronically signed by: Bhupinder Muniz MD 01/29/2025 11:28 AM EDT
--- NOTE | ~2025-01-29 | XR_ITS ---
EXAMINATION: XR CHEST CLINICAL INFORMATION: near syncope COMPARISON: None available. TECHNIQUE: PA and lateral views FINDINGS: No hyperinflation. No consolidation, pleural effusion or pneumothorax. Cardiomediastinal silhouette size is normal. Mild multilevel thoracolumbar spondylosis. Mild S-shaped curvature of the thoracolumbar spine. XR/XR chest 2V IMPRESSION: No acute airspace disease. Mild scoliosis and multilevel spondylosis. Electronically signed by: Romero Zhang MD 01/29/2025 09:36 AM EDT
--- NOTE | 2025-01-29 08:33 | ED_ITS ---
HPI - General Adult General Chief complaint: Dizziness Stated complaint: feeling woozy on job Time Seen by Provider: 01/29/25 08:33 Source: patient Mode of arrival: ambulatory Limitations: no limitations History of Present Illness ED Provider: Susan Wilhelm PA-C HPI narrative: This is a 49 year old female that presents due to a sensation of feeling woozy. Patient describes the woozy feeling as if she took drugs but she has not taken any new medications. This started this morning while she was seated taking report at work. She states that both of her arms felt week during this episode but they feel better now. She denies any sensation of the room moving, and she states that her eyes feel heavy but denies any vision changes. She denies any chest pain, palpitations, or shortness of breath. She states that she feels that she had plenty of water today. She denies any dietary changes, abdominal pain, or changes in stool or urination. She denies nausea or vomiting. She denies alcohol or recreational drug use. Related Data Home Medications ?Medication ?Instructions ?Recorded ?Confirmed No Known Home Meds 09/20/23 09/20/23 Allergies Allergy/AdvReac Type Severity Reaction Status Date / Time codeine Allergy Vomiting Verified 01/29/25 08:38 tramadol Allergy Swelling Verified 01/29/25 08:38 Review of Systems 2 Constitutional: Constitutional: Reports as per HPI Eyes: Eyes: Reports as per HPI ENT: Reports as per HPI Cardiovascular: Cardiovascular: Reports as per HPI Respiratory: Respiratory: Reports as per HPI Gastrointestinal: Gastrointestinal: Reports as per HPI Genitourinary: Genitourinary: Reports as per HPI Musculoskeletal: Musculoskeletal: Reports as per HPI Integumentary/Breasts: Skin/Breast: Reports as per HPI Neurologic: Reports as per HPI Psychiatric: Psychiatric: Reports as per HPI Endocrine: Endocrine: Reports as per HPI Hematologic/Lymphatic: Hematologic/Lymphatic: Reports as per HPI Allergic/Immunologic: Allergic/Immunologic: Reports as per HPI PMF Past Medical History Attestation statement: The following information was validated with the patient. Source: old records reviewed and nursing notes reviewed Surgical History Hx of breast reduction, elective Social History Social History Patient Tobacco Use Status: Never used Tobacco Advance Directives: No Advance Directives Information Provided: Yes Do you have a plan to hurt others: No Plan Current occupation: [employer] RN, right hand dominant Physical Exam ED Vital Signs: Vital Signs - 24 hr 01/29/25 08:34 01/29/25 10:34 01/29/25 12:12 Temperature 97.6 F 97.8 F Pulse Rate 77 69 78 Respiratory Rate 16 16 18 Blood Pressure 116/79 122/69 129/73 Pulse Oximetry 97 97 Oxygen Delivery Method Room Air Room Air BMI result Body Mass Index 34.1 Const General: cooperative, comfortable, alert and awake Nutritional Appearance: well nourished Orientation/consciousness: oriented to person and oriented to place HENMT Head: Yes normal to inspection, Yes normocephalic and Yes atraumatic Ears: TM normal on the right and TM normal on the left General nose exam: Normal external nose present Face and sinus: Yes normal facial exam Mouth: Normal oral and palatal mucosa present, no drooling and no muffled voice Eyes General: appearance normal, both eyes and all related structures Periorbital: periorbital findings normal Eyelids: Yes eyelids normal Conjunctivae: conjunctivae normal Pupils: Equal, round and reactive pupils present EOM: EOMs intact bilaterally Neck Neck: Yes normal visual inspection Lymphatic: no lymphadenopathy noted Resp Effort & Inspection: normal respiratory effort, able to speak in complete sentences and no cough Auscultation: clear to auscultation bilaterally, no crackles, no rales, no rhonchi and no wheezes Cardio Rate: regular rate Rhythm: regular rhythm Heart sounds: S1 normal heart sound present and S2 normal heart sound present GI Inspection: Yes normal to inspection Palpation (GI): Soft to palpation, nontender and no guarding Auscultation: normal bowel sounds Skin General skin exam: no rashes or lesions noted Neuro General: oriented to person and oriented to place Cranial nerves: Yes Equal, round and reactive pupils present Cognition (Neuro): normal cognition Motor exam (neuro): 5/5 motor strength present throughout Extrem General: Yes normal to inspection Psych Appearance: grossly normal Mental Status: mental status grossly normal Speech and movement: Normal speech and movement present Affect: normal affect Attitude: cooperative Thought process: Normal thought process present Thought content: Normal thought content present Insight: Good insight present (Psych) Judgement: Good judgement present (Psych) Medications Administered Discontinued Medications Generic Name Dose Route Start Last Admin Trade Name Mich PRN Reason Stop Dose Admin Sodium Chloride 1,000 mls @ 999 mls/hr 01/29/25 08:45 01/29/25 10:31 Ns IV 01/29/25 09:45 Infused .Q1H1M THANIA Infusion Iohexol 100 ml 01/29/25 10:52 01/29/25 10:53 Iohexol 350 Mg/Ml 100 Ml Infus..Btl IV 01/29/25 10:53 70 ml ONCE ONE Administration Medical Decision Making Medical Decision Making [facility] Narrative: Patient is a 49 year old assigned female at with no reported medical history presenting to the emergency department today with a woozy sensation. Patient's physical exam was unremarkable. Patient's blood work was unremarkable. Patient's urine showed no acute process. Patient's EKG was unremarkable. Patient's chest x-ray and CTA of the head/neck showed no acute process. I explained my physical exam findings as well as all test results to the patient. I answered all questions asked by the patient. Patient received IV fluids while in the department. Upon re-evaluation the patient stated that she felt 90% improved. Patient's clinical presentation is most consistent with a near syncopal episode vs. early viral sinusitis vs. vertigo. I stressed the importance of the patient taking her medication as directed (either prescribed or as the over the counter packaging recommends). I stressed the importance of the patient following up with her primary care provider. I stressed the importance of the patient returning to the emergency department immediately if her symptoms were to worsen or if she were to develop any dizziness, shortness of breath, difficulty breathing, chest pain, blurry vision, loss of vision, nausea, vomiting, abdominal pain, fever, chills, back pain, or any other complaints. Patient verbalized agreement and understanding with this treatment plan and discharge. Differential Diagnosis Differential Diagnoses: The differential diagnosis associated with the presentation includes Woozy Dizziness Lightheadedness Near syncope CVA Vertigo Sinusitis Admission/Observation Consideration of admission/observation: Escalation of care including admission/observation considered Patient would have been admitted to the hospital had her work up had any findings where hospital admission was appropriate and her clinical presentation warranted hospital admission. Lab Data [facility] Lab Attestation statement: I reviewed the patient's lab results. My interpretation of these studies and their corresponding values is that they are grossly normal. 01/29/25 09:02 01/29/25 09:02 Labs: Lab Results 01/29/25 01/29/25 Range/Units 09:02 09:43 WBC 8.8 (4.8-10.8) X10*3/uL RBC 4.75 (4.20-5.50) X10*6/uL Hgb 15.0 (12.0-16.0) g/dl Hct 41.3 (37.0-47.0) % MCV 86.9 (80.0-98.0) fL MCH 31.6 (27.0-33.0) pg MCHC 36.3 H (31.0-35.0) g/dl RDW 11.9 (11.0-16.0) % Plt Count 365 D (160-400) X10*3/uL MPV 9.2 L (9.4-12.3) fL Immature Gran % (Auto) 0.6 H (0.0-0.4) % Neut % (Auto) 60.6 (45-73) % Lymph % (Auto) 28.4 (20-40) % Taliaferro % (Auto) 6.3 (2-11) % Eos % (Auto) 3.2 (0-4) % Baso % (Auto) 0.9 (0-2) % Lymph # (Auto) 2.5 (1.2-4.9) X10*3/uL [place]ferro # (Auto) 0.6 (0.1-1.2) X10*3/uL Eos # (Auto) 0.3 (0.0-0.4) X10*3/uL Baso # (Auto) 0.1 (0.0-0.2) X10*3/uL Abs Immat Gran (auto) 0.05 H (0.00-0.03) X10*3/uL Absolute Neuts (auto) 5.4 (2.0-8.3) x10*3/uL Absolute Nucleated RBC 0.000 (0.0-0.012) X10*3/uL Nucleated RBC % (auto) 0.0 (0.0-0.2) /100WBC Sodium 139 (135-145) mmol/L Potassium 4.3 (3.3-5.1) mmol/L Chloride 107 (96-108) mmol/L Carbon Dioxide 24 (22-29) mmol/L Anion Gap 12 (12-20) BUN 13 (9-16) mg/dL Creatinine 0.82 (0.5-1.4) mg/dL Estim Creat Clear Calc 95.5 Estimated GFR > 60 Random Glucose 86 (60-115) mg/dL Calcium 9.1 (8.4-10.2) mg/dL Magnesium 2.2 (1.6-2.6) mg/dL Total Bilirubin 0.7 (0.0-1.0) mg/dL AST 32 H (5-31) U/L ALT 76 H (0-31) U/L Alkaline Phosphatase 68 (39-117) U/L Troponin I High Sens 7.2 (<3.5-17.0) ng/L Total Protein 7.2 (6.5-8.0) g/dL Albumin 4.5 (3.5-5.0) g/dL TSH 1.62 (0.32-4.0) uIU/mL Beta HCG, Quant < 2 mIU/mL Urine Color Yellow Urine Appearance Clear Urine pH 6.5 (5.0-9.0) Ur Specific [place] <= 1.005 (1.005-1.025) Urine Protein Negative (Neg-Trace) mg/dL Urine Glucose (UA) Negative (Negative) mg/dL Urine Ketones Negative (Negative) mg/dL Urine Blood Negative (Negative) Urine Nitrite Negative (Negative) Ur Leukocyte Esterase Trace H (Negative) Urine RBC 0-2 (0-2) /HPF Urine WBC 0-5 (0-5) /HPF Ur Squamous Epith Cells 0-2 (0-2) /HPF Urine Bacteria None Seen (None Seen) Hyaline Casts 0-2 (0-2) /LPF COVID-19 (IAN) Negative (Negative) COVID-19 Clin Com See Note Influenza Type A (JULIOCESAR) Negative (Negative) Influenza Type B (JULIOCESAR) Negative (Negative) Influenza A & B Note See Note Independent Interpretation I performed an independent interpretation of an: EKG, Plain X-Ray and CT Scan Interpretation: My interpretation is in agreement with the radiologist's impression of these imaging studies. L Report Number: [id number] Reason for Exam: unsteadiness / gait instability EXAMINATION: CT ANGIOGRAM HEAD AND NECK CLINICAL INFORMATION: unsteadiness / gait instability COMPARISON: None available. TECHNIQUE: Noncontrast axial imaging of the head was performed. This was followed by test bolus sequences and head and neck intravenous bolus administration 70mL of Omnipaque 350. Helical imaging was performed in the axial plane from the aortic arch to the skull vertex. The data was processed at the nuclear medicine technologist's workstation for generation of MIP sequences. Angled MIPs and volume rendered reformatted images were also generated at an offline 3D workstation. Stenoses are assessed in accordance with NASCET criteria unless otherwise indicated. This CT examination was performed using dose optimization techniques as appropriate, variously including the following: *Automated exposure control *Adjustment of mA and/or kV according to patient size (this includes techniques or standardized protocols for targeted exams where dose is matched to indication/reason for exam; i.e. extremities or head) *Use of iterative reconstruction technique FINDINGS: NONCONTRAST HEAD CT: There is no evidence of intracranial hemorrhage or extra- axial fluid collection. There is no mass effect, or edema. No CT evidence of acute territorial infarct. Ventricles, sulci, and cisterns are normal in size and configuration for patient age. No hydrocephalus. No midline shift. No significant white matter abnormalities. Globes and orbital contents image normally. No extracranial soft tissue abnormalities. The paranasal sinuses, mastoid air cells, and tympanic cavities are normally aerated. No suspicious bony abnormalities. NECK CTA: -AORTIC ARCH: Normal in caliber. Mild atheromatous calcification. Three-vessel branching pattern. -GREAT VESSEL ORIGINS: Widely patent. No stenosis. -RIGHT COMMON CAROTID ARTERY: Normal in course and caliber to the level of the bifurcation. -CERVICAL RIGHT INTERNAL CAROTID ARTERY: Normal opacification without focal stenosis or occlusion. -LEFT COMMON CAROTID ARTERY: Normal in course and caliber to the level of the bifurcation. -CERVICAL LEFT INTERNAL CAROTID ARTERY: Mild calcific atherosclerotic disease of the carotid bulb and proximal internal carotid artery resulting in approximate 30% short segment stenosis. -CERVICAL RIGHT VERTEBRAL ARTERY: Small. Normal in course and caliber into the skull base. The origin is moderately obscured by streak artifact related to reflux of contrast in the right subclavian vein and superior vena cava. -CERVICAL LEFT VERTEBRAL ARTERY: Left dominant. Normal in course and caliber into the skull base. OTHER, SOFT TISSUES: -No lymphadenopathy or mass. No abnormal fluid collection or soft tissue swelling. -Normal thyroid. -Imaged superior mediastinal structures normal. -Imaged lung apices clear. CTA OF THE BRAIN: -INTRACRANIAL INTERNAL CAROTID ARTERIES: No focal stenosis or occlusion. Minimal atherosclerotic ossification is present in the carotid siphon on the left. -RIGHT ANTERIOR CEREBRAL ARTERY: Normal A1 segment.. Normal arborization of the distal segments. -LEFT ANTERIOR CEREBRAL ARTERY: Normal A1 segment.. Normal arborization of the distal segments. -ANTERIOR COMMUNICATING ARTERY: Normal. -RIGHT MIDDLE CEREBRAL ARTERY: Normal M1 segment of the MCA without focal stenosis or occlusion. Normal bifurcation. Normal arborization of the distal segments. -LEFT MIDDLE CEREBRAL ARTERY: Normal M1 segment of the MCA without focal stenosis or occlusion. Normal bifurcation. Normal arborization of the distal segments. -RIGHT VERTEBRAL ARTERY V4: Normal in course and caliber. -LEFT VERTEBRAL ARTERY V4: Normal in course and caliber. -BASILAR ARTERY: Normal without focal stenosis or occlusion. Normal appearance of the proximal superior cerebellar arteries. Normal basilar tip. -RIGHT POSTERIOR CEREBRAL ARTERY: Normal P1 segment. Normal opacification of the distal [place]AY[place] segments. -LEFT POSTERIOR CEREBRAL ARTERY: Normal P1 segment. Normal opacification of the distal [place]AY[place] segments. -POSTERIOR COMMUNICATING ARTERIES: The right is small but present. Left is patent. Normal opacification of the superior sagittal, straight, transverse, and sigmoid sinuses. No venous thrombosis. No space-occupying hemorrhage or definite evolving infarct. CT/CT angio head neck IMPRESSION: NONCONTRAST HEAD CT: 1. No intracranial hemorrhage or mass effect. No CT evidence of acute territorial infarct. CTA NECK: No hemodynamically significant stenosis. CTA HEAD: No hemodynamically significant stenosis. Susan Wilhelm, PAC notified and message read at 11:28 am ET Electronically signed by: Bhupinder Muniz MD 01/29/2025 11:28 AM EDT Dictated By: Bhupinder Muniz MD Signed By: Electronically signed by Bhupinder Muniz MD 01/29/25 1128 Reason for Exam: near syncope EXAMINATION: XR CHEST CLINICAL INFORMATION: near syncope COMPARISON: None available. TECHNIQUE: PA and lateral views FINDINGS: No hyperinflation. No consolidation, pleural effusion or pneumothorax. Cardiomediastinal silhouette size is normal. Mild multilevel thoracolumbar spondylosis. Mild S-shaped curvature of the thoracolumbar spine. XR/XR chest 2V IMPRESSION: No acute airspace disease. Mild scoliosis and multilevel spondylosis. Electronically signed by: Romero Zhang MD 01/29/2025 09:36 AM EDT RP Dictated By: Romero Piña MD Signed By: Electronically signed by Romero Russo MD 01/29/25 0936 I independently interpreted this EKG and am in agreement with the below findings: Vent. Rate: 73 BPM Atrial Rate: 73 BPM P-R Int: 182 ms QRS Dur: 88 ms QT Int: 398 ms P-R-T Axes: 28 27 38 degrees QTcB Int: 438 ms Normal sinus rhythm Normal ECG No previous ECGs available DD/ 0842 Radiology Impression Discussion of test interpretation with radiology: I have reviewed the radiologist's reading. Discharge Plan Discharge Clinical Impression: Dizziness, Near syncope Patient Disposition: Home, Self-Care Instructions: Near Syncope (ED), Dizziness (ED) Additional Instructions: Your work up today was reassuring with a normal CTA of the head/neck and reassuring labs. IF you are prescribed home medications and/or you are taking over the counter medications at home - it is very important you continue to do so as prescribed / directed unless told otherwise. Follow up with your primary care provider. Return to the emergency department immediately if your symptoms worsen or if you develop any numbness, tingling, dizziness, shortness of breath, difficulty breathing, chest pain, blurry vision, loss of vision, nausea, vomiting, abdominal pain, fever, chills, back pain, or any other complaints. Please see the information below about our Patient Portal. If you are not yet enrolled in the [facility] Patient Portal, you will receive an enrollment email invitation following your visit to any [facility] setting. You may also self-enroll in the Patient Portal by visiting our website: [email or web address] The following information is required to access the Patient Portal: - Your [facility] Medical Record Number - Your personal home email address (must match what is in your electronic medical record, Registration staff can assist with this) - Name - Date of Capabilities of the Patient Portal: - Message some providers - View upcoming appointments - Access your health summary, medical history, and visit history - View current conditions and allergies - View procedure and lab results - View your medications, including guidelines, side effects, and precautions - Complete pre-appointment questionnaires requested by your provider - Ready summary reports of your office visits and procedures To access the Patient Portal Mobile Jami, follow these directions: - Search [employer]angible in the Jami Store or Toutpost Store - Download the Jami - Search for [facility] - Enter your login/password Prescriptions: No Action No Known Home Meds Referrals: Deepthi Warner PA-C [Primary Care Provider, Family Practice] Stand Alone Forms: Work/School Release Interventions: ED Discharge Assessment Last Done: 01/29/25 12:12 Discharge Date/Time: 01/29/25 12:13 Print Language: Georgian
[2025-01-29 08:34] VITALS: BP 116/79; PULSE 77; RESP 16; TEMP 36.4; O2SAT 97; BMI 34.1
[2025-01-29 09:16] LABS: MANUAL DIFF FLAG NO
[2025-01-29 09:19] LABS: Hematocrit 41.3 % (37.0-47.0); Hemoglobin 15.0 g/dl (12.0-16.0); Imm Gran Abs Auto 0.05 X10*3/uL (0.00-0.03); Imm Gran Pct Auto 0.6 % (0.0-0.4); Lymphocytes Absolute Auto 2.5 X10*3/uL (1.2-4.9); Mean Corpuscular HGB Conc 36.3 g/dl (31.0-35.0); Mean Corpuscular Hemoglobin 31.6 pg (27.0-33.0); Mean Corpuscular Volume 86.9 fL (80.0-98.0); NRBC Abs Auto 0.000 X10*3/uL (0.0-0.012); NRBC Pct Auto 0.0 /100WBC (0.0-0.2); Platelet Count 365 X10*3/uL (160-400); Red Blood Count 4.75 X10*6/uL (4.20-5.50); White Blood Count 8.8 X10*3/uL (4.8-10.8)
--- OUTSIDE RECORDS SUMMARY | 2025-01-29 09:23 | XMS_ITS | Clinical Summary ---
Author Organization [facility] Address [address] [place] [address] Phone Care Team Providers Care Tax Senior Associate Name Role Phone Physician, No Pcp Primary [...] Smear 1998 Breast Cancer Screening 12/03/2023 12/02/2021 Cholesterol Screening (Lipid Panel) 03/26/2024 Colorectal Cancer Screening: Colonoscopy 03/26/2024 HIV Screening 03/26/2024 Hepatitis C Screening 03/26/2024 Social Influencers of Health Screening 03/26/2024 Depression Screening 04/30/2024 COVID-19 Vaccine ( season) 2024 04/19/2021, 06/25/2020, 05/28/2020 Influenza Vaccine (#1) 2024 2, 04/03/2011, 03/08/2010 DTaP,Tdap,and Td Vaccines (10 - [...] 5 Years) and At-Risk Patients (6 to 49 Years) Aged Out No longer eligible based on patient's age to complete this topic RSV Immunization Patients Under 20 months Aged Out No longer eligible based on patient's age to complete this topic Varicella Vaccines Aged Out No longer eligible based on patient's age to complete this topic Insurance * Guarantor: Pilar Velez Account Type Relation to Patient Date of Phone Billing Address Personal/Family Self 1975 [address] [place] [address] [facility] Care Teams Tax Senior Associate Relationship Specialty Start Date End Date Physician, No Pcp PCP - General 04/02/24
--- OUTSIDE RECORDS SUMMARY | 2025-01-29 09:23 | XMS_ITS | Encounter Summary ---
Author Organization [facility] Address [address] [place] [phone] Phone Care Team Providers Care Newspaper Press Operator Apprentice Name Role Phone Pilar Connell MD Primary Care Provider [phone] Clementine Alanis MD Primary Care Provider [phone] Lia Chen MD Unavailable [phone] Nusrat Garcia NP Primary Care Provider [phone] Encounter Details Date Type Department Care Team (Late st Contact Info) Description 02/17/2017 Ancillary Orders [facility], X-Ray - [facility] [address] [place] [address] Pilar Connell MD [address] [place] [address] [address] [place] [id number] [email or web address] Visit for screening mammogram Social History Tobacco Use Types Packs/Day Years Used Date Smoking Tobacco: Never Assessed Comments Unknown Sex and Gender Information Value Date Recorded Sex Assigned at Female 05/07/2017 9:38 AM EST Legal Sex Female 9:26 PM EDT Gender Identity Female 05/07/2017 9:38 AM EST Sexual Orientation Bisexual 05/07/2017 9: 38 AM EST documented as of this encounter Plan of Treatment Not on file documented as of this encounter Results * BI MAMMOGRAM SCREENING WITH TOMOSYNTHESIS WITH CAD (BILATERAL) (03/20/2017 3:38 PM EST) Anatomical Region Laterality Modality Breast Left, Breast Right, Breast Bilateral Bila teral Mammography 03/21/2017 4:15 PM EST Impressions 03/21/2017 4:18 PM EST No mammographic evidence of malignancy. Routine screening is recommended. BI-RADS CATEGORY: 2 - Benign finding. DENSITY: There are scattered fibroglandular densities. POS - [id number] Narrative 03/21/2017 4:18 PM EST FINDINGS: Bilateral full-field digital screening mammography is obtained and read in conjunction with computer-aided detection. 3-D tomosynthesis as well as 2-D C view imaging is also performed. This is a baseline examination. Breasts are composed of scattered fibroglandular tissue. Intramammary lymph node in the upper outer right breast. No dominant mass, suspicious microcalcifications, architectural distortion, focal skin thickening, or asymmetry is detected. Procedure Note Laura Stewart MD - 03/21/2017 FINDINGS: Bilateral full-field digital screening mammography is obtained and read inconjunction with computer-aided detection. 3-D tomosynthesis as well as2-D C view imaging is also performed. This is a baseline examination. Breasts are composed of scattered fibroglandular tissue. Intramammarylymph node in the upper outer right breast. No dominant mass, suspiciousmicrocalcifications, architectural distortion, focal skin thickening, orasymmetry is detected. IMPRESSION: No mammographic evidence of malignancy. Routine screening isrecommended. BI-RADS CATEGORY: 2 - Benign finding. DENSITY: There are scattered fibroglandular densities. POS - [id number] us Pilar Connell MD IMG MG EXAMS Final Result documented in this encounter Visit Diagnoses Diagnosis Visit for screening mammogram Visit for screening mammogram documented in this encounter Additional Health Concerns Infection Onset Date Last Indicated Resolved Time CoV-Risk 11/07/2019 11/08/2019 11/21/2019 3:34 AM EDT CoV-Exposed Comment:Recent close contact 03/09/2020 03/09/2020 03/23/2020 1:25 AM EST documented as of this encounter Care Teams Newspaper Press Operator Apprentice Relationship Specialty Start Date End Date Pilar Connell MD [email or web address] PCP - General 02/15/17 10/13/20 Clementine Alanis MD [address] [place] [address] [email or web address] PCP - General Family Medicine 10/14/20 05/14/22 Nusrat Garcia NP [address] [place] [phone] [email or web address] PCP - General Nurse Practitioner 05/15/22 Lia Chen MD [address] [place] [address] Insurance Assigned Provider Family Medicine 11/02/20 documented as of this encounter Additional Source Comments The information contained in this document represents components of the legal health record. It is not the complete legal health record.[facility]
--- OUTSIDE RECORDS SUMMARY | 2025-01-29 09:23 | XMS_ITS | Encounter Summary ---
Author Organization [facility] Address [address] [facility] [address] [place] [address] Phone Care Team Providers Care Instructor Nurse Name Role Phone Pilar Connell MD Primary Care Provider [phone] Clementine Alanis MD Primary Care Provider [phone] Lia Chen MD Unavailable [phone] Nusrat Garcia NP Primary Care Provider [phone] Encounter Details Date Type Department Care Team (Latest Contact Info) Description 11/07/2019 Transcribe Orders Virtual Department [address] [place] [address] Gabe Hilario MD [address] [place] [phone] Ale [email or web address] Cough (Primary Dx); Loss of smell; Loss of taste; Sore throat Social History Tobacco Use Types Packs/Day Years Used Date Smoking Tobacco: Former Smokeless Tobacco: Never Alcohol Use Standard Drinks/Week Comments Yes 0 (1 standard drink = 0.6 oz pur e alcohol) rare Comments No Sex and Gender Information Value Date Recorded Sex Assigned at Female 05/07/2017 9:38 AM EST Legal Sex Female 9:26 PM EDT Gender Identity Female 05/07/2017 9:38 AM EST Sexual Orientation Bisexual 05/07/2017 9: 38 AM EST 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 on file documented as of this encounter Plan of Treatment Not on file documented as of this encounter Results * COVID-19 PCR Order (11/08/2019 12:58 PM EDT) Specimen Source NASOPHARYNGEAL SWAB (ENERGY CONSULTANT) [facility] COVID Testing Status Sent to [facility] Other 11/08/2019 12:5 8 PM EDT 11/08/2019 1:30 PM EDT Gabe Hilario MD BODY FLUIDS AND STOOLS ORD ERABLES Final Result [facility] [address] [place] [address] documented in this encounter Visit Diagnoses Diagnosis Cough- Primary Loss of smell Disturbances of sensation of smell and taste Loss of taste Disturbances of sensation of smell and taste Sore throat Acute pharyngitis documented in this encounter Additional Health Concerns Infection Onset Date Last Indicated Resolved Time CoV-Risk 11/07/2019 11/08/2019 11/21/2019 3:34 AM EDT CoV-Exposed Comment:Recent close contact 03/09/2020 03/09/2020 03/23/2020 1:25 AM EST documented as of this encounter Care Teams Instructor Nurse Relationship Specialty Start Date End Date Pilar Connell MD [email or web address] PCP - General 02/15/17 10/13/20 Clementine Alanis MD [address] [place] [id number] [email or web address] PCP - General Family Medicine 10/14/20 05/14/22 Nusrat Garcia NP [address] [place] [address] [email or web address] PCP - General Nurse Practitioner 05/15/22 Lia Chen [facility] [place] [phone] Insurance Assigned Provider Family Medicine 11/02/20 documented as of this encounter Additional Source Comments The information contained in this document represents components of the legal health record. It is not the complete legal health record.[facility]
--- OUTSIDE RECORDS SUMMARY | 2025-01-29 09:23 | XMS_ITS | Encounter Summary ---
Author Organization [facility] Address [address] [place], [place] [phone] Phone Care Team Providers Care Family Preservation Officer Name Role Phone Clementine Alanis MD Primary Care Provider [phone] Lia Chen MD Unavailable [phone] Nusrat Garcia NP Primary Care Provider [phone] Encounter Details Date Type Department Care Team (Late st Contact Info) Description 10/14/2020 Ancillary Orders Virtual Department 30 [place] [address] Clementine Alanis MD [address] [place] [address] [email or web address] Breast screening Social History Tobacco Use Types Packs/Day Years [...] 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 In the absence of a worrisome palpable abnormality, annual screening mammography is recommended. BI-RADS CATEGORY: 1 - Negative. DENSITY: There are scattered fibroglandular densities. Narrative 11/09/2020 8:53 AM EDT COMPARISON: 03/20/2017 Bilateral 3-D tomosynthesis with 2-D reconstructions in the CC and MLO projection. Computer-aided detection system was utilized. No new mass, asymmetry, architectural distortion or suspicious calcifications have become apparent on either side. Procedure Note Lobito Vaughan MD - 11/09/2020 COMPARISON: 03/20/2017 Bilateral 3-D tomosynthesis with 2-D reconstructions in the CC and MLOprojection. Computer-aided detection system was utilized. No new mass, asymmetry, architectural distortion or suspiciouscalcifications have become apparent on either side. IMPRESSION: No findings suspicious for malignancy are identified. In the absence of aworrisome palpable abnormality, annual screening mammography isrecommended. BI-RADS CATEGORY: 1 - Negative. DENSITY: There are scattered fibroglandular densities. Clementine Alanis MD IMG MG EXAMS Final Res ult documented in this encounter Visit Diagnoses Diagnosis Breast screening Breast screening, unspecified Breast screening Breast screening, unspecified documented in this encounter Care Teams Family Preservation Officer Relationship Specialty Start Date End Date Clementine Alanis MD [address] [place] [phone] [email or web address] PCP - General Family Medicine 10/14/20 05/14/22 Nusrat Garcia NP [address] [place] [phone] [email or web address] PCP - General Nurse Practitioner 05/15/22 Lia Chen [facility] [place] [address] Insurance Assigned Provider Family Medicine 11/02/20 documented as of this encounter Additional Source Comments The information contained in this document represents components of the legal health record. It is not the complete legal health record.[facility]
--- OUTSIDE RECORDS SUMMARY | 2025-01-29 09:23 | XMS_ITS | Encounter Summary ---
Author Organization [facility] Address [facility] [employer] [facility] [address] [place] [address] Phone Care Team Providers Care Catalogue Clerk Name Role Phone Clementine Alanis MD Primary Care Provider [phone] Lia Chen MD Unavailable [phone] Nusrat Garcia NP Primary Care Provider [phone] Encounter Details Date Type Department Care Team (Late st Contact Info) Description 10/14/2020 Procedure Pass [facility], [address] [id number] Social History Tobacco Use Types Packs/Day Years [...] 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 documented as of this encounter Plan of Treatment Not on file documented as of this encounter Visit Diagnoses Not on filedocumented in this encounter Care Teams Catalogue Clerk Relationship Specialty Start Date End Date Clementine Alanis [facility] [place], [place] [phone] [email or web address] PCP - General Family Medicine 10/14/20 05/14/22 Nusrat Garcia NP [address] [place] [address] [email or web address] PCP - General Nurse Practitioner 05/15/22 Lia Chen MD [address] [place] [phone] Insurance Assigned Provider Family Medicine 11/02/20 documented as of this encounter Additional Source Comments The information contained in this document represents components of the legal health record. It is not the complete legal health record.[facility]
--- OUTSIDE RECORDS SUMMARY | 2025-01-29 09:23 | XMS_ITS | Encounter Summary ---
Author Organization [facility] Address [facility]ly [facility], [facility] [employer] 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 this encounter Plan of Treatment Not on file documented as of this encounter Visit Diagnoses Not on filedocumented in this encounter Care Teams Clin Asst Relationship Specialty Start Date End Date [facility] [place], [place] [phone] [email or web address] PCP - General Family Medicine 10/14/20 05/14/22 Nusrat Garcia NP [address] [place] [phone] [email or web address] PCP - General Nurse Practitioner 05/15/22 Lia Chen MD [address] [place] [phone] Insurance Assigned Provider Family Medicine 11/02/20 documented as of this encounter Additional Source Comments The information contained in this document represents components of the legal health record. It is not the complete legal health record.[facility]
--- OUTSIDE RECORDS SUMMARY | 2025-01-29 09:23 | XMS_ITS | Clinical Summary ---
Author Organization [facility] Address [address] [place] [address] Care Team Providers Care Printing Supervisor Name Role Phone Deepthi Warner Primary Care Provider Allergies Active Allergy Reactions Criticality Noted Date Comments Codeine Nausea And Vomiting 05/02/2017 Tramadol Swelling High 03/06/2024 Medications ALPRAZolam (XANAX) 0.25 mg tablet SMARTSI Tablet(s) By Mouth PRN Active ergocalciferol (VITAMIN D2) 1,250 mcg (50,000 unit) capsule Take 50,000 Units by mouth every 7 days. Active estradioL (ESTRACE) 0.01 % (0.1 mg/gram) vaginal cream SMARTSIG:Spa ringly Vaginal Daily 12/14/2023 Active Lyllana 0.025 mg/24 hr SMARTSI Patch(s) Topical Twice a Week 02/06/2024 Active fluconazole (DIFLUCAN) 150 mg tablet TAKE 1 TABLET BY MOUTH ONCE FOR 1 DOSE THEN REPEAT AFTER 72 HOURS 07/26/2023 Active FLUoxetine (PROzac) 20 mg capsule SMARTSI Capsule(s) By Mouth Daily 01/24/2024 Active norethindrone (AYGESTIN) 5 mg tablet SMARTSI Tablet(s) By Mouth Daily 01/26/2024 Active Active Problems Problem Noted Date Diagnosed Date Tremor 03/06/2024 Tic 03/06/2024 Family History Medical History Relation Name Comments No Known Problems Father No Known Problems Mother Relation Name Status Comments Father Mother Social History Tobacco Use Types Packs/Day Years Used Date Smoking Tobacco: Never Smokeless Tobacco: Never Tobacco Cessation:Counseling Given: Not Answered Alcohol Use Standard Drinks/Week Comments Yes 0 (1 standard drink = 0.6 oz pur e alcohol) Comments Unknown Sex and Gender Information Value Date Recorded Sex Assigned at Female 03/06/2024 9:07 AM EST Legal Sex Female 4:12 PM EDT Gender Identity Female 03/06/2024 9:07 AM EST Sexual Orientation Not on file Last Filed Vital Signs Vital Sign Reading Time Taken Comments Blood Pressure 128/84 03/06/2024 9:17 AM EST Pulse 69 03/06/2024 9:17 AM EST Temperature 36.3 C (97.4 F) 03/06/2024 9:17 AM EST Respiratory Rate - - Oxygen Saturation 97% 03/06/2024 9:17 AM EST Inhaled Oxygen Concentration - - Weight 87.1 kg (192 lb) 03/06/2024 9:17 AM EST Height - - Body Mass Index - - Plan of Treatment Health Maintenance Due Date Last Done Comments Cervical Cancer Screening 1977 Cologuard 1977 Colon Cancer Screening 1977 Colonoscopy 1977 FOBT / Fit Test 1977 HIV Screening 1977 HPV and Pap Smear 1977 Hepatitis C Screening 1977 Pap Smear 1977 Sigmoidoscopy 1977 Mammogram 12/03/2023 12/02/2021, 0808/2021, 11/09/2020, Additional history exists Alcohol/Substance Use Screening 04/30/2024 Depression Screening and Follow-Up 04/30/2024 Social Drivers of Health Annual Screening 04/30/2024 COVID-19 Vaccine ( season) 2024 Influenza Vaccine (#1) 2024 2, 04/03/2011, 03/08/2010 DTaP,Tdap,and Td Vaccines (7 - Td or Tdap) 10/24/2025 10/25/2015, 11/17/2004, 09/09/1987, Additional history exists RSV Vaccine (60+ years old and patients) (1 - 1-dose 75+ series) 2052 Hepatitis B Vaccines Completed 09/16/2021, 04/06/1994, 10/05/1993, Additional history exists Pneumococcal Vaccine: Pediatric (0-5 Years) and At-Risk Patients (6-50 Years) Aged Out No longer eligible based on patient's age to complete this topic Insurance [employer] Care Teams Printing Supervisor Relationship Specialty Start Date End Date Deepthi Warner [address] [place] [phone] PCP - General Physician Clinical Nursing Assistant 02/19/24
--- OUTSIDE RECORDS SUMMARY | 2025-01-29 09:23 | XMS_ITS | Encounter Summary ---
Author Organization [facility] Address [address] [place], [place] [phone] Phone Care Team Providers Care Motor Vehicle Field Representative Name Role Phone Clementine Alanis MD Primary Care Provider [phone] Lia hCen MD Unavailable [phone] Nusrat Garcia NP Primary Care Provider [phone] Encounter Details Date Type Department Care Team (Latest Contact Info) Description 09/30/2021 Transcribe Orders Virtual Department [address] [place] [address] Clementine Alanis MD [address] [place], [place] [phone] [email or web address] Breast screening (Primary Dx) Social History Tobacco Use Types Packs/Day Years [...] 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 Recommend routine annual surveillance. BI-RADS CATEGORY: 1 - Negative. DENSITY: There are scattered fibroglandular densities. Narrative 12/02/2021 3:36 PM EDT 46-year-old female. Comparison made to previous on 11/09/2020 and as far back as 03/20/2017. Interpretation made in conjunction with computer-aided detection and tomosynthesis. There are scattered areas of fibroglandular density. There are no suspicious masses, areas of architectural distortion, or suspicious clusters of microcalcifications. Procedure Note Bjorn Wiseman MD - 12/02/2021 46-year-old female. Comparison made to previous on 11/09/2020 and as farback as 03/20/2017. Interpretation made in conjunction withcomputer-aided detection and tomosynthesis. There are scattered areas of fibroglandular density. There are no suspicious masses, areas of architectural distortion, orsuspicious clusters of microcalcifications. IMPRESSION: No mammographic evidence of malignancy. Recommend routine annualsurveillance. BI-RADS CATEGORY: 1 - Negative. DENSITY: There are scattered fibroglandular densities. us Clementine lAanis MD IMG MG EXAMS Final Res ult documented in this encounter Visit Diagnoses Diagnosis Breast screening- Primary Breast screening, unspecified Breast screening Breast screening, unspecified documented in this encounter Care Teams Motor Vehicle Field Representative Relationship Specialty Start Date End Date Clementine Alanis MD [address] [place] [phone] [email or web address] PCP - General Family Medicine 10/14/20 05/14/22 Nusrat Garcia NP [address] [place] [phone] [email or web address] PCP - General Nurse Practitioner 05/15/22 Lia Chen MD [address] [place] [address] Insurance Assigned Provider Family Medicine 11/02/20 documented as of this encounter Additional Source Comments The information contained in this document represents components of the legal health record. It is not the complete legal health record.[facility]
--- OUTSIDE RECORDS SUMMARY | 2025-01-29 09:23 | XMS_ITS | Encounter Summary ---
Author Organization [facility] Address [address] [facility] [address] [place] [address] Phone Care Team Providers Care Embedded Hardware Engineer Name Role Phone Lia Chen MD Unavailable [phone] Nusrat Garcia NP Primary Care Provider [phone] Encounter Details Date Type Department Care Team (Late st Contact Info) Description 08/01/2022 Procedure Pass [place] Admitting Dept - Virtual Department [address] [place] [address] Social History Tobacco Use Types Packs/Day Years Used Date Smoking Tobacco: Never Smokeless Tobacco: Never Alcohol Use Standard Drinks/Week Comments Not Currently 0 (1 standard drink = 0.6 oz pur e alcohol) twice a year Intimate Partner Violence Answer Date R ecorded Are you denied basic needs s uch as food, clothing, or medical care? No 08/01/2022 In the past 12 months have y ou been in a relationship with a person who hurts, threatens, or tries to control you? No 08/01/2022 Are you denied basic needs s uch as food, clothing, or medical care? No 08/01/2022 In the past 12 months have y ou been in a relationship with a person who hurts, threatens, or tries to control you? 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 It is not the complete legal health record.[facility]
--- OUTSIDE RECORDS SUMMARY | 2025-01-29 09:23 | XMS_ITS | Clinical Summary ---
Author Organization [facility] Address [address] [place] [address] Phone Care Team Providers Care Director Of Advertising Sales Name Role Phone Lia Chen MD Unavailable [phone] Nusrat Garcia NP Primary Care Provider Allergies Active Allergy Reactions Criticality Noted Date Comments Codeine Nausea and/or Vomiting 05/02/2017 Medications ALPRAZolam (XANAX) 0.25 MG tablet Take 0.25 mg by mouth continuous prn for sleep. As needed for flying Active ergocalciferol (DRISDOL) 50,000 unit capsule Take 50,000 Units by mouth once a week. Active triamcinolone acetonide 0.025 % ointmentIndicat ions:Genital pruritus Apply topically 2 (two) times a day. 30 g 2 Active terconazole (TERAZOL 7) 0.4 % vaginal creamIndication s:Vaginal shayy Place 1 applicator vaginally nightly at bedtime. 45 g 4 Active Active Problems Problem Noted Date Diagnosed Date Vaginal shayy 07/26/2023 Assessment & Plan (08/02/2023 11:52 AM EDT): -Pt advised to avoid douching, wear cotton underwear, decrease tub baths, and wear loose fitting pants. Change soaps and laundry detergents to odorless/colorless/sensitive skin formulations. -Rx was sent to the pharmacy -Nu swab sent out -GC/CT obtained as well Lactose intolerance 03/07/2022 Hyperlipidemia 03/07/2022 Irritable bowel syndrome 03/07/2022 Vitamin D deficiency 03/07/2022 Breast hypertrophy in female Immunizations Immunization Administration Dates Next Due DTaP 02/21/1982, 9,1977,1977,1977 Hepatitis B Adult 09/16/2021 Hepatitis B, unspecified formulation 04/06/1994, 10/05/1993,08/31/1993 INFLUENZA, SPLIT VIRUS, TRIV ALENT W/ PRESERVATIVE IM 03/06/2012,04/03/2011,03/08/2010,2009 IPV 02/21/1982, 9,1977,1977,1977 MMR 11/17/2004,09/26/1989,1977 Td, unspecified formulation 11/17/2004, 8 Tdap 10/25/2015 Family History Medical History Relation Comments No Known Problems Daughter No Known Problems Father Cervical cancer Mother Bladder Cancer Paternal Grandmother No Known Problems Sister healthy Relation Status Comments Daughter Alive Father Alive Mother Alive Paternal Grandmother Sister Alive Social History Tobacco Use Types Packs/Day Years Used Date Smoking Tobacco: Never Smokeless Tobacco: Never Tobacco Cessation:Counseling Given: Not Answered Alcohol Use Standard Drinks/Week Comments Not Currently 0 (1 standard drink = 0.6 oz pur e alcohol) twice a year Education Answer Date Recorded Are you interested in more education? Not on marie e 08/25/2022 Are you concerned about learning? Not on file 08/25/2022 No 08/25/2022 No 08/25/2022 Digital Access Answer Date Recorded No 09/22/2022 No 09/22/2022 Reliable internet access at home? Not on file 09/22/2022 Device with a working camera? 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 on file Last Filed Vital Signs Vital Sign Reading Time Taken Comments Blood Pressure 100/70 07/26/2023 11:05 AM EDT Pulse 67 08/01/2022 1:35 PM EDT Temperature 36.2 C (97.2 F) 08/01/2022 12:40 PM EDT Respiratory Rate 16 08/01/2022 1:35 PM EDT Oxygen Saturation 99% 08/01/2022 2:35 PM EDT Inhaled Oxygen Concentration - - Weight 86.2 kg (190 lb) 08/01/2022 6:30 AM EDT Height 165.1 cm (5' 5 ) 07/26/2023 11:05 AM EDT Body Mass Index 31.62 08/01/2022 6:30 AM EDT Plan of Treatment Health Maintenance Due Date Last Done Comments LIPID PANEL 1977 DEPRESSION SCREENING 1989 HEPATITIS C SCREENING 1995 HIV ONE-TIME SCREENING (18-65 YEARS) 1995 SCREENING FOR DIABETES 2012 PAP SMEAR 05/03/2020 05/03/2017, 05/02/2017 COLOGUARD 2022 COLONOSCOPY 2022 COLORECTAL CANCER SCREENING 2022 FIT TEST 2022 FOBT 2022 SIGMOIDOSCOPY 2022 VIRTUAL COLONOSCOPY 2022 MAMMOGRAM 12/03/2023 12/02/2021, 10/28, 03/20/2017 INFLUENZA VACCINE (#1) 2024 2, 04/03/2011, 03/08/2010, Additional history exists COVID-19 VACCINE ( season) 2024 04/19/2021, 06/25/2020, 05/28/2020 Adult Td,Tdap Booster 07/18/2032 07/18/2022 , 10/25/2015, 11/17/2004, Additional history exists SMOKING STATUS SCREENING (Once After 26 Yrs) Completed 07/26/2023 HEPATITIS A VACCINES Aged Out No long er eligible based on patient's age to complete this topic HIB VACCINES Aged Out No longer eligi ble based on patient's age to complete this topic MENINGOCOCCAL VACCINES (ACWY) Aged Out No longer eligible based on patient's age to complete this topic MENINGOCOCCAL VACCINES (B) Aged Out N o longer eligible based on patient's age to complete this topic PNEUMOCOCCAL VACCINES (0-49 years) Aged Out No longer eligible based on patient's age to complete this topic Medical Devices Not on file Procedures Procedure Name Priority Date/Time Associated Diagnosis Comments BI MAMMOGRAM SCREENING WITH TOMOSYNTHESIS WITH CAD (BILATERAL) Routine 12/02/2021 11:39 AM EDT Breast screening PAP TEST Routine 05/03/2017 12:00 AM EST from Last 3 Months or Most Recently Relevant to Health Maintenance Results * BI MAMMOGRAM SCREENING WITH TOMOSYNTHESIS [...] MD IMG MG EXAMS Final Res ult * Pap Smear (05/03/2017 12:00 AM EST) 05/03/2017 05/04/2017 1:2 4 PM EST Narrative SEE NARRATIVE - 05/08/2017 3:09 [place] [address] Cnc Field Service Engineer: Pushpa Gaytan MD SAMPLE HAND Cytology Report FINAL DIAGNOSIS A. PAP SMEAR (SUREPATH) C: SPECIMEN ADEQUACY: Satisfactory for evaluation; transformation zone present. INTERPRETATION: NEGATIVE FOR INTRAEPITHELIAL LESION OR MALIGNANCY. Electronically Signed Out By: CINDY Lanier(ASCP) The Pap test is a screening test primarily for squamous cancers and precursors and has associated false-negative and false-positive results. New technologies such as liquid-based preparations may decrease but will not eliminate all false-negative results. Regular sampling and follow-up of unexplained clinical signs and symptoms are recommended to minimize false negative results. PROCEDURES/ADDENDA HPV Testing (Requested) Ordered Date: 05/04/2017 HPV Test Negative for high risk human papillomavirus types 16, 18 and the Other high risk probe set (Includes 31, 33, 35, 39, 45, 51, 52, 56, 58, 59, 66, 68) by Nely cobase 4800 HR-HPV analysis. Clinical correlation is advised. This HPV test was performed at [facility], [address] [place] [address]. The accuracy and precision of this test has been verified in the Cytopathology laboratory of the [facility]. This test has not been cleared or approved by the U.S. Food and Drug Administration (FDA). CLINICAL HISTORY Date of Last Menstrual Period: Not Provided Menstrual History: Unknown Other Clinical Conditions: Screening Pap SPECIMEN SOURCE A: PAP SMEAR (SUREPATH) C Patient Name: JAIRO VELEZI : 1975 (Age: 42) Sex: F Institution[facility] Location: [facility] Date of Collection: 05/03/2017 Date of Reported: 05/08/2017 15:09 Results to: Danita KEENE Danita Kiran CNM CYTOLOGY ORDERABLES Fi formerly [facility] Result SEE NARRATIVE from Last 3 Months or Most Recently Relevant to Health Maintenance Insurance [employer] * Guarantor: Pilar Velez Account Type Relation to Patient Date of Phone Billing Address Personal/Family Self [address] [place] [address] [employer] [place] [phone] [employer] * Guarantor: Pilar Velez Account Type Relation to Patient Date of Phone Billing Address Personal/Family Self [address] [place] [address] [employer] [facility] [place] [place] [address] , [place] [address] Advance Directives For more information, please contact: [phone] (9AM - 5PM [facility], Sunday-Sunday) * Full Code (Latest Code Status on File) Date Activated Date Inactivated Comments 08/01/2022 6:10 AM Question Answer Comments Code Status Confirmed With: Other (specify below ) Code Discussion Comments: periop Care Teams Director Of Advertising Sales Relationship Specialty Start Date End Date Nusrat Garcia NP [address] [place] [address] [email or web address] PCP - General Nurse Practitioner 05/15/22 Lia Chen MD [facility] [place] [address] Insurance Assigned Provider Family Medicine 11/02/20 Additional Source Comments The information contained in this document represents components of the legal health record. It is not the complete legal health record.[facility]
[2025-01-29 09:32] LABS: Alanine Aminotransferase 76 U/L (0-31); Albumin Level 4.5 g/dL (3.5-5.0); Alkaline Phosphatase 68 U/L (39-117); Anion Gap 12 (12-20); Aspartate Amino Transferase 32 U/L (5-31); Blood Urea Nitrogen 13 mg/dL (9-16); Calcium 9.1 mg/dL (8.4-10.2); Carbon Dioxide 24 mmol/L (22-29); Chloride 107 mmol/L (96-108); Creatinine Clr Calc Pharmacy 95.5; Estimated Glomerular Filt Rate > 60; Magnesium 2.2 mg/dL (1.6-2.6); Potassium 4.3 mmol/L (3.3-5.1); Sodium 139 mmol/L (135-145); Total Protein 7.2 g/dL (6.5-8.0)
[2025-01-29 09:34] LABS: COVID-19 Test Negative (Negative); IDNOW Serial# 58CA691E
[2025-01-29 09:35] LABS: IDNOW Serial# 55D5AD1C; Influenza B2 Negative (Negative)
[2025-01-29 09:39] LABS: Troponin-I High Sensitivity 7.2 ng/L (<3.5-17.0)
[2025-01-29 09:53] LABS: Appearance Urine Clear; Glucose Urine UA Negative (Negative); PH 6.5 (5.0-9.0); Specific Gravity - Urine <= 1.005 (1.005-1.025); UMIC TRIGGER UACC YES
[2025-01-29 10:34] VITALS: BP 122/69; PULSE 69; RESP 16; O2SAT 97
[2025-01-29] MEDS: iohexoL 350 MG/ML 100 ML INFUS..BTL IV (10:53)
[2025-01-29 12:12] VITALS: BP 129/73; PULSE 78; RESP 18; TEMP 36.6
== END 2025-01-29 12:13 | disposition home or self-care (01) ==
PROVIDERS: Physician Assistant Medical; Emergency Provider Emergency Medicine; PCP Physician Assistant
DX: R42 Dizziness and giddiness (principal); R55 Syncope and collapse; R11.0 Nausea; R10.22 Pelvic and perineal pain left side; Z11.52 Encounter for screening for COVID-19; Z79.899 Other long term (current) drug therapy
CPT/HCPCS: 36415; 70496; 70498; 71046; 80053; 81001; 83735; 84443; 84484; 84702; 85025; 87502; 87635; 93005; 96360; 99285; Q9967

== ENCOUNTER → 2025-01-29 08:42 | Outpatient (BNV) | payer OTHER, SELFPAY | PROVIDERS: Emergency Provider Emergency Medicine; PCP Physician Assistant; Visit Provider Internal Medicine | DX: R42 Dizziness and giddiness (principal) | CPT/HCPCS: 93010 ==

== ENCOUNTER → 2025-01-29 08:44 | Outpatient (BNV) | payer OTHER, SELFPAY | PROVIDERS: PCP Physician Assistant; Visit Provider Radiology Diagnostic Radiology | DX: R26.81 Unsteadiness on feet (principal); R55 Syncope and collapse | CPT/HCPCS: 70496; 70498; 71046 ==

== ENCOUNTER 2025-02-04 11:59 | Outpatient (REF) | payer OTHER, SELFPAY ==
[2025-02-04 13:09] LABS: Alanine Aminotransferase 78 U/L (0-31); Albumin Level 4.4 g/dL (3.5-5.0); Alkaline Phosphatase 65 U/L (39-117); Aspartate Amino Transferase 52 U/L (5-31); Total Protein 7.1 g/dL (6.5-8.0)
== END 2025-02-04 12:00 | disposition home or self-care (01) ==
LOC: HO.LAB 11:59
PROVIDERS: PCP Physician Assistant; Visit Provider Podiatrist Foot Surgery
DX: B35.3 Tinea pedis (principal); B35.1 Tinea unguium
CPT/HCPCS: 36415; 80076

== ENCOUNTER 2025-04-21 10:03 | Outpatient (REF) | payer OTHER, SELFPAY ==
--- OUTSIDE RECORDS SUMMARY | 2025-04-21 11:04 | XMS_ITS | Clinical Summary ---
Demographics Address [address] [place] [address] Home Phone Preferred Language en Marital Status Unknown Holiness Affiliation Unknown Race White Ethnic Group Unknown Author Organization [facility] Address [address] [place] [address] Phone Care Team Providers Care Junior Buyer Name Role Phone Physician, No Pcp Primary [...] Health Maintenance Due Date Last Done Comments Colorectal Cancer Screening: Colonoscopy 1975 Cervical Cancer Screening: Pap Smear 1998 Breast Cancer Screening 12/03/2023 12/02/2021 Cholesterol Screening (Lipid Panel) 03/26/2024 HIV Screening 03/26/2024 Hepatitis C Screening 03/26/2024 Social Influencers of Health Screening 03/26/2024 Depression Screening 04/30/2024 COVID-19 Vaccine ( season) 2024 04/19/2021, 06/25/2020, 05/28/2020 Influenza Vaccine (#1) 2024 2, 04/03/2011, 03/08/2010 DTaP,Tdap,and Td Vaccines (10 - Td or Tdap) 07/18/2032 07/18/2022, 10/25/2015, 11/17/2004, Additional history exists RSV Immunization Adult Patients (1 - 1-dose 75+ series) 2052 IPV Vaccines Completed 02/21/1982, 09/28, 1975, Additional [...] patient's age to complete this topic Insurance [facility] Care Teams Junior Buyer Relationship Specialty Start Date End Date Physician, No Pcp PCP - General 04/02/24
--- OUTSIDE RECORDS SUMMARY | 2025-04-21 11:04 | XMS_ITS | Clinical Summary ---
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 PAP SMEAR [...] advised. This HPV test was performed at [facility], [address] [place] [address]. The accuracy and precision of this test has been verified in the Cytopathology laboratory of the [facility]. This test has not been cleared or approved by the U.S. Food and Drug Administration (FDA). CLINICAL HISTORY Date of Last Menstrual Period: Not Provided Menstrual History: Unknown Other Clinical Conditions: Screening Pap SPECIMEN SOURCE A: PAP SMEAR (SUREPATH) C Patient Name: JAIRO VELEZI : 1975 (Age: 42) Sex: F Institution: [facility] Location: [facility] Date of Collection: 05/03/2017 Date of Reported: 05/08/2017 15:09 Results to: Danita KEENE Danita Kiran CNM CYTOLOGY ORDERABLES Fi formerly [facility] Result SEE NARRATIVE from Last 3 Months or Most Recently Relevant to Health Maintenance Insurance [employer] * Guarantor: Pilar Velez Account Type Relation to Patient Date of Phone Billing Address Personal/Family Self [address] [place] [address] [employer] [place] [phone] [employer] * Guarantor: Pilar Velez Account Type Relation to Patient Date of Phone Billing Address Personal/Family Self [address] [place] [address] [employer] [facility] [place] [address] , [place] [address] Advance Directives For more information, please contact: [phone] (9AM - 5PM [facility], Sunday-Sunday) * Full Code (Latest Code Status on File) Date Activated Date Inactivated Comments 08/01/2022 6:10 AM Question Answer Comments Code Status Confirmed With: Other (specify below ) Code Discussion Comments: periop Care Teams Catalogue Maker Relationship Specialty Start Date End Date Nusrat Garcia NP [address] [place] [id number] [email or web address] PCP - General Nurse Practitioner 05/15/22 Lia Chen [facility] [address] [email or web address] Insurance Assigned Provider Family Medicine 11/02/20 Additional Source Comments The information contained in this document represents components of the legal health record. It is not the complete legal health record.[facility]
--- OUTSIDE RECORDS SUMMARY | 2025-04-21 11:04 | XMS_ITS | Encounter Summary ---
Author Organization [facility] Address [address] [place] [address] [place], [place] [address] Phone Care Team Providers Care Services Rep Name Role Phone Clementine Alanis MD Primary Care Provider [phone] Lia Chen MD Unavailable [phone] Nusrat Garcia NP Primary Care Provider [phone] Encounter Details Date Type Department Care Team (Late st Contact Info) Description 10/14/2020 Ancillary Orders Virtual Department [address] [place] [address] Clementine Alanis MD [address] [place] [address] [email or web address] Breast screening Social History Tobacco Use Types [...] 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 [...] unspecified documented in this encounter Care Teams Services Rep Relationship Specialty Start Date End Date Clementine Alanis MD [address] [place] [address] PCP - General Family Medicine 10/14/20 05/14/22 Nusrat Garcia NP [address] [place] [address] [email or web address] PCP - General Nurse Practitioner 05/15/22 Lia Chen MD [address] [place] [address] [email or web address] Insurance Assigned Provider Family Medicine 11/02/20 documented as of this encounter Additional Source Comments The information contained in this document represents components of the legal health record. It is not the complete legal health record.[facility]
--- OUTSIDE RECORDS SUMMARY | 2025-04-21 11:04 | XMS_ITS | Encounter Summary ---
Author Organization [facility] Address [address] [employer] [facility] [address] [place] [address] Phone Care Team Providers Care Mail Processor Name Role Phone Pilar Connell MD Primary Care Provider [phone] Clementine Alanis MD Primary Care Provider [phone] Lia Chen MD Unavailable [phone] Nusrat Garcia NP Primary Care Provider [phone] Encounter Details Date Type Department Care Team (Late st Contact Info) Description 02/17/2017 Ancillary Orders [facility], X-Ray - [facility] [address] [place] [address] Pilar Connell MD [address] [place] [address] [address] [place] [phone] [email or web address] Visit for screening mammogram Social History Tobacco Use Types Packs/Day Years Used Date Smoking Tobacco: Never Assessed Comments Unknown Sex and Gender Information Value Date Recorded Sex Assigned at Female 05/07/2017 9:38 AM EST Legal Sex Female 9:26 PM EDT Gender Identity Female 05/07/2017 9:38 AM EST Sexual Orientation Bisexual 05/07/2017 9 :38 AM EST documented as of this encounter [...] There are scattered fibroglandular densities. POS - [id number] Narrative 03/21/2017 4:18 PM EST FINDINGS: Bilateral [...] There are scattered fibroglandular densities. POS - [id number] us Pilar Connell MD IMG MG EXAMS Final Result documented in this encounter Visit Diagnoses Diagnosis Visit for screening mammogram Visit for screening mammogram documented in this encounter Additional Health Concerns Infection Onset Date Last Indicated Resolved Time CoV-Risk 11/07/2019 11/08/2019 11/21/2019 3:34 AM EDT CoV-Exposed Comment:Recent close contact 03/09/2020 03/09/2020 03/23/2020 1:25 AM EST documented as of this encounter Care Teams Mail Processor Relationship Specialty Start Date End Date Pilar Connell MD [email or web address] PCP - General 02/15/17 10/13/20 Clementine Alanis MD [address] [place] [address] [email or web address] PCP - General Family Medicine 10/14/20 05/14/22 Nusrat Garcia NP [address] [place] [address] [email or web address] PCP - General Nurse Practitioner 05/15/22 Lia Chen MD [address] [place] [address] [email or web address] Insurance Assigned Provider Family Medicine 11/02/20 documented as of this encounter Additional Source Comments The information contained in this document represents components of the legal health record. It is not the complete legal health record.[facility]
--- OUTSIDE RECORDS SUMMARY | 2025-04-21 11:04 | XMS_ITS | Encounter Summary ---
Author Organization [facility] Address [address] [employer] [facility] [address] [place] [address] Phone Care Team Providers Care Life Sciences Director Name Role Phone Lia Chen MD Unavailable [phone] Nusrat Garcia NP Primary Care Provider [phone] Encounter Details Date Type Department Care Team (Late st Contact Info) Description 08/01/2022 Procedure Pass OR Admitting Dept - Virtual Department [address] [place] [address] Social History Tobacco Use Types Packs/Day Years [...] on filedocumented in this encounter Care Teams Life Sciences Director Relationship Specialty Start Date End Date Nusrat Garcia NP [address] [place] [address] [email or web address] PCP - General Nurse Practitioner 05/15/22 Lia Chen MD [address] [place] [address] [email or web address] Insurance Assigned Provider Family Medicine 11/02/20 documented as of this encounter Additional Source Comments The information contained in this document represents components of the legal health record. It is not the complete legal health record.[facility]
--- OUTSIDE RECORDS SUMMARY | 2025-04-21 11:04 | XMS_ITS | Encounter Summary ---
Author Organization [facility] Address [facility] [address] [place] [phone] Phone Care Team Providers Care Supervisor Sign Shop Name Role Phone Clementine Alanis MD Primary Care Provider [phone] Lia Chen MD Unavailable [phone] Nusrat Garcia NP Primary Care Provider [phone] Encounter Details Date Type Department Care Team (Late st Contact Info) Description 10/14/2020 Procedure Pass [facility], [address] [id number] Social History Tobacco Use Types Packs/Day Years [...] 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 documented as of this encounter Plan of Treatment Not on file documented as of this encounter Visit Diagnoses Not on filedocumented in this encounter Care Teams Supervisor Sign Shop Relationship Specialty Start Date End Date Clement[facility] [place], [place] [id number] [email or web address] PCP - General Family Medicine 10/14/20 05/14/22 Nusrat Garcia NP [address] [place] [phone] [email or web address] PCP - General Nurse Practitioner 05/15/22 Lia Chen MD [address] [place] [phone] [email or web address] Insurance Assigned Provider Family Medicine 11/02/20 documented as of this encounter Additional Source Comments The information contained in this document represents components of the legal health record. It is not the complete legal health record.[facility]
--- OUTSIDE RECORDS SUMMARY | 2025-04-21 11:04 | XMS_ITS | Encounter Summary ---
Author Organization [facility] Address [facility] [address] [place] [phone] Phone Care Team Providers Care Room Inspector Name Role Phone Clementine Alnais MD Primary Care Provider [phone] Lia Chen MD Unavailable [phone] Nusrat Garcia NP Primary Care Provider [phone] Encounter Details Date Type Department Care Team (Late st Contact Info) Description 09/30/2021 Procedure Pass [facility], [address] [id number] Social History Tobacco Use Types Packs/Day Years [...] 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 Not on file documented as of this encounter Plan of Treatment Not on file documented as of this encounter Visit Diagnoses Not on filedocumented in this encounter Care Teams Room Inspector Relationship Specialty Start Date End Date Clement[facility] [place], [place] [id number] [email or web address] PCP - General Family Medicine 10/14/20 05/14/22 Nusrat Garcia NP [address] [place] [phone] [email or web address] PCP - General Nurse Practitioner 05/15/22 Lia Chen MD [address] [place] [phone] [email or web address] Insurance Assigned Provider Family Medicine 11/02/20 documented as of this encounter Additional Source Comments The information contained in this document represents components of the legal health record. It is not the complete legal health record.[facility]
--- OUTSIDE RECORDS SUMMARY | 2025-04-21 11:04 | XMS_ITS | Clinical Summary ---
Author Organization [facility] Address [address] [place] [address] Care Team Providers Care Wheel Fitter Name Role Phone Deepthi Warner Primary Care [...] Smear 1977 Sigmoidoscopy 1977 Mammogram 12/03/2023 12/02/2021, 08/0 08/2021, 11/09/2020, Additional history exists Alcohol/Substance Use Screening 04/30/2024 Depression Screening and Follow-Up 04/30/2024 Social Drivers of Health Annual Screening 04/30/2024 Influenza Vaccine (#1) 2024 2, 04/03/2011, 03/08/2010 COVID-19 Vaccine ( - 2024- season) 2024 DTaP,Tdap,and Td Vaccines (7 - Td or Tdap) 10/24/2025 10/25/2015, 11/17/2004, 09/09/1987, Additional history exists Hepatitis B Vaccines Completed 09/16/2021, 04/06/1994, 10/05/1993, Additional history exists Pneumococcal Vaccine: Pediatric (0-5 Years) and At-Risk Patients (6-50 Years) Aged Out No longer eligible based on patient's age to complete this topic Insurance [employer] Care Teams Wheel Fitter Relationship Specialty Start Date End Date Deepthi Warner [address] [place] [address] PCP - General Physician Profiler 02/19/24
--- OUTSIDE RECORDS SUMMARY | 2025-04-21 11:04 | XMS_ITS | Encounter Summary ---
Author Organization [facility] Address [address] [place], [place] [phone] Phone Care Team Providers Care Antique Collector Name Role Phone Clementine Alanis MD Primary Care Provider [phone] Lia Chen MD Unavailable [phone] Nusrat Garcia NP Primary Care Provider [phone] Encounter Details Date Type Department Care Team (Latest Contact Info) Description 09/30/2021 Transcribe Orders Virtual Department [address] [place] [address] Clementine Alanis MD [address] [place], [place] [phone] [email or web address] Breast screening (Primary Dx) Social History Tobacco [...] 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 us Clementine Alanis MD IMG MG EXAMS Final Res ult documented in this encounter Visit Diagnoses Diagnosis Breast screening- Primary Breast screening, unspecified Breast screening Breast screening, unspecified documented in this encounter Care Teams Antique Collector Relationship Specialty Start Date End Date Clementine Alanis MD [address] [place] [phone] [email or web address] PCP - General Family Medicine 10/14/20 05/14/22 Nusrat Garcia NP [address] [place] [phone] [email or web address] PCP - General Nurse Practitioner 05/15/22 Lia Chen MD [address] [place] [address] [email or web address] Insurance Assigned Provider Family Medicine 11/02/20 documented as of this encounter Additional Source Comments The information contained in this document represents components of the legal health record. It is not the complete legal health record.[facility]
[2025-04-21 11:43] LABS: Alanine Aminotransferase 22 U/L (0-31); Albumin Level 4.4 g/dL (3.5-5.0); Alkaline Phosphatase 58 U/L (39-117); Aspartate Amino Transferase 22 U/L (5-31); Total Protein 7.0 g/dL (6.5-8.0)
== END 2025-04-21 10:04 | disposition home or self-care (01) ==
LOC: HO.LAB 10:03
PROVIDERS: PCP Physician Assistant; Visit Provider Physician Assistant
DX: Z12.11 Encounter for screening for malignant neoplasm of colon (principal); R74.01 Elevation of levels of liver transaminase levels
CPT/HCPCS: 36415; 80076